=== PATIENT | female | born 1940 | race Caucasian/White ===

== ENCOUNTER → 2019-07-11 | Outpatient (CLI) | payer BC ==
--- NOTE | 2019-07-11 11:30 | KCIC ---
Abdominal ultrasound without comparison for chronic kidney disease stage IV, increased abdominal size, history of colon cancer, gastric bypass, assess for ascites. Technique an findings: Real-time grayscale and color Doppler evaluation of the abdominal organs is performed. Gallbladder surgically absent. The IVC is patent. Visualized portions of the aorta are not aneurysmal. There is partial obscuration of much of the midline due to overlying bowel gas, including the pancreas, and portions of the aorta. The spleen is also obscured. Portions of the liver are also obscured. The liver is enlarged measuring 16.8 cm. There is diffuse fatty infiltration of the liver, limiting evaluation of parenchymal architecture. No definite focal parenchymal abnormalities are seen. No intrahepatic ductal dilatation is present. The portal vein is patent and hepatopedal. Common bile duct is not identified. Evaluation of the kidneys is also somewhat limited by habitus. The right kidney measures 7.4 x 3.8 x 3.6 cm and the left measures 8.0 x 3.8 x 3.6 cm. There is increased echogenicity of both cortices, with no hydronephrosis or perinephric fluid. There is a simple exophytic cyst at the inferior pole the left kidney. No abdominal masses are identified and there is no ascites identified. IMPRESSION: 1. Limited examination due to central bowel gas and habitus. 2. Hepatomegaly and hepatic steatosis. 3. Atrophic echogenic kidneys consistent with chronic medical renal disease. 4. Simple left renal cyst. 5. No evidence of abdominal ascites. Electronically signed by: Gianni Martínez MD (07/11/2019 11:27 AM) [facility]
--- NOTE | 2019-07-11 12:59 | KCIC ---
Thyroid ultrasound without comparison for thyroid nodules. TECHNIQUE AND FINDINGS: Real-time grayscale and color Doppler evaluation of the thyroid gland is performed. The right lobe measures 4.2 x 1.8 x 1.4 cm and the left measures 4.0 x 2.1 x 1.4 cm. Isthmus is normal in thickness at 2.5 mm. The gland is homogeneous in echotexture, and demonstrates normal color flow. There are several nodules throughout the thyroid gland, all of which are less than a centimeter in diameter. On the right within the mid gland, there is a calcified shadowing nodule measuring 5 mm in diameter. The dominant nodule in the left thyroid lobe is inferior medially, and measures 0.8 x 0.9 cm. This is homogeneously hypoechoic, with smooth margins and no internal punctate calcifications. No significant vascularity. No adenopathy is identified. IMPRESSION: 1. Multinodular thyroid, with a dominant 9 mm nodule the inferior aspect the left thyroid lobe as described. Follow-up ultrasound in one year for this nodule should be considered. General recommendations for nodules 1.0 cm or greater in largest diameter: Strongly consider FNA for: -A nodule 1.0 cm or more in largest diameter if microcalcifications are present. -A nodule 1.5 cm or more in largest diameter if the nodule is almost entirely solid or if coarse calcifications are present. -A nodule 2.0 cm or more in largest diameter if the nodule is mixed solid and cystic, or is almost entirely cystic with a solid mural nodule, or has had substantial growth since prior US studies. JEFF Ultrasound Consensus Conference Statement, June 2005, Volume 237, Issue 3 Electronically signed by: Gianni Martínez MD (07/11/2019 12:56 PM) [facility]
== END | disposition home or self-care (01) ==
LOC: KCIC US 08:24
PROVIDERS: ATTEND Family Medicine
DX: E04.2 Nontoxic multinodular goiter (principal); K76.0 Fatty (change of) liver, not elsewhere classified; R16.0 Hepatomegaly, not elsewhere classified; N28.1 Cyst of kidney, acquired; N18.4 Chronic kidney disease, stage 4 (severe); Z85.038 Personal history of other malignant neoplasm of large intestine
CPT/HCPCS: 76536; 76700

== ENCOUNTER → 2020-03-03 | Outpatient (CLI) | payer BC ==
--- NOTE | 2020-03-03 16:45 | KCIC ---
3 view study of the second toe of the right foot Clinical indications: Dropped heavy object 6 weeks ago onto toe. Second toe pain. FINDINGS: No acute fracture or dislocation or lytic process is seen. IMPRESSION: No acute fracture. Electronically signed by: Carlos Enrique Figueroa MD (03/03/2020 4:42 PM) [id number]
== END | disposition home or self-care (01) ==
LOC: KCIC 14:57
PROVIDERS: ATTEND Family Medicine
DX: M79.674 Pain in right toe(s) (principal)
CPT/HCPCS: 73660

== ENCOUNTER 2020-03-17 20:55 | Inpatient (IN) | payer MEDICARE, BC ==
[~2020-03-17] VITALS: Ht 154.9 cm; Wt 71.7 kg
--- NOTE | 2020-03-17 22:32 | PHYS DOC ---
General Adult EDM: Chief Complaint: GI PROBLEM HPI: HPI: Patient is a 80 year old female who presents with complaints of diarrhea with nausea and vomiting. Patient reports that on Sunday she began to have large- volume diarrhea. She reports that she thought that things were getting better today that the volume of the diarrhea diminished but the frequency is still present. She denied abdominal pain or fever. Today she reports that she began to have nausea with vomiting stating that she did not have anything to bring up but that she was vomiting. Patient also states that she feels dizzy when she stands up like she is about to pass out but denies any syncope, chest pain or shortness of breath. Patient denies headache, ear pain change in urination back pain or joint pain that is changed. Review of Systems: Review of Systems: Constitutional: Denies fever or chills. [] Eyes: Denies change in visual acuity. [] HENT: Denies nasal congestion or sore throat. [] Respiratory: Denies cough or shortness of breath. [] Cardiovascular: Denies chest pain or edema. [] GI: See HPI. [] : Denies dysuria. [] Musculoskeletal: See HPI [] Integument: Denies rash. [] Neurologic: Denies headache, focal weakness or sensory changes. [] Endocrine: Denies polyuria or polydipsia. [] Lymphatic: Denies swollen glands. [] Psychiatric: Denies depression or anxiety. [] Heart Score: Risk Factors: Risk Factors: DM, Current or recent (<one month) smoker, HTN, HLP, family history of CAD, obesity. Risk Scores: Score 0 - 3: 2.5% MACE over next 6 weeks - Discharge Home Score 4 - 6: 20.3% MACE over next 6 weeks - Admit for Clinical Observation Score 7 - 10: 72.7% MACE over next 6 weeks - Early Invasive Strategies Allergies: Allergies: Allergies Coded Allergies Type Severity Reaction Last Updated Verified Penicillins Allergy Unknown 03/17/20 Yes Sulfa (Sulfonamide Antibiotics) Allergy Unknown 03/17/20 Yes piperacillin Allergy Unknown 03/17/20 Yes tazobactam Allergy Unknown 03/17/20 Yes Physical Exam: PE: Constitutional: Well developed, well nourished, no acute distress, non-toxic appearance. [] HENT: Normocephalic, atraumatic, bilateral external ears normal, oropharynx dry, no oral exudates, nose normal. [] Eyes: PERRLA, EOMI, conjunctiva normal, no discharge. [] Neck: Normal range of motion, no tenderness, supple, no stridor. [] Cardiovascular: Regular rhythm, tachycardic, grade 2/6 systolic murmur, 1 out of 2 pulses in the dorsalis pedis bilaterally [] Lungs & Thorax: Bilateral breath sounds clear to auscultation [] Abdomen: Hyperactive bowel sounds, soft, no tenderness, no masses, no pulsatile masses. No guarding, no rebound, no hepatosplenomegaly or masses [] Skin: Warm, dry, no erythema, no rash. [] Back: No tenderness, no CVA tenderness. [] Extremities: No tenderness, no cyanosis, no clubbing, ROM intact, no edema. [] Neurologic: Alert and oriented X 3, normal motor function, normal sensory function, no focal deficits noted. [] Psychologic: Affect flat, judgement normal, mood anxious. [] EKG: EKG: Heart rate 117 bpm, normal sinus rhythm with tachycardia, nonspecific T wave changes, normal axis, [place] interval 200 ms abnormal ECG [] Radiology/Procedures: Radiology/Procedures: [] Course & Med Decision Making: Course & Med Decision Making Pertinent Labs and Imaging studies reviewed. (See chart for details) 0139-patient was seen and reevaluated. Patient has improved with medications rendered here in the emergency department. Patient remains tachycardic and will require some additional IV fluids but will do a gentle hydration given her age and chronic renal insufficiency. IV Levaquin will be started for her presumed acute cystitis. We have not been able to collect any stool since she has not had any since her arrival here in the emergency department. [] Dragon Disclaimer: Dragon Disclaimer: This electronic medical record was generated, in whole or in part, using a voice recognition dictation system. Departure Departure Impression: Primary Impression: Generalized abdominal pain Additional Impressions: Acute on chronic renal insufficiency Dehydration Acute gastroenteritis Acute cystitis without hematuria Disposition: ADMITTED INPATIENT Condition: IMPROVED Referrals: SWETHA GUNN MD (PCP) Justicifation of Admission Dx: Justifications for Admission: Justification of Admission Dx: Yes Chronic Renal Failure: Electrolyte Abnormality NATHAN KRUEGER MD Mar 17, 2020 22:32
[2020-03-17] MEDS ORDERED: IV NORMAL SALINE 1000ML BAG 1,000 ML IV ONE (22:45)
[2020-03-17] MEDS ORDERED: METOCLOPRAMIDE HCL 10 MG/2 ML VIAL. IVP ONE (22:45)
[2020-03-17 22:52] LABS: BASO # 0.1 x10^3/uL (0.0-0.2); BASO % 0 % (0-3); EOS % 0 % (0-3); HEMATOCRIT 48.1 % (36.0-47.0); HEMOGLOBIN 15.2 g/dL (12.0-15.5); LYMPH # 1.1 x10^3/uL (1.0-4.8); LYMPH % 5 % (24-48); MEAN CORPUSCULAR HEMOGLOBIN 28 pg (25-35); MEAN CORPUSCULAR HGB CONC 32 g/dL (31-37); MEAN CORPUSCULAR VOLUME 88 fL (79-100); MONO # 0.8 x10^3/uL (0.0-1.1); MONO % 4 % (0-9); NEUT # 17.9 x10^3/uL (1.8-7.7); NEUT % 90 % (31-73); PLATELET COUNT 338 x10^3/uL (140-400); RED BLOOD COUNT 5.49 x10^6/uL (3.50-5.40); RED CELL DISTRIBUTION WIDTH 16.8 % (11.5-14.5); WHITE BLOOD COUNT 19.9 x10^3/uL (4.0-11.0)
[2020-03-17 23:00] LABS: PROTHROMBIN TIME PATIENT 14.2 SEC (11.7-14.0)
[2020-03-17 23:13] LABS: % BANDS 1 % (0-9); % BASOS 1 % (0-3); % LYMPHS 7 % (24-48); % MONOS 1 % (0-10); % SEGS 90 % (35-66); ANISOCYTOSIS SLIGHT; PLT ESTIMATE ADEQUATE (ADEQUATE)
[2020-03-17 23:30] LABS: CALCIUM 9.4 mg/dL (8.5-10.1); POTASSIUM 3.2 mmol/L (3.5-5.1)
--- NOTE | 2020-03-17 23:35 | RAD ---
CT scan of the abdomen and pelvis without contrast 03/17/2020 CLINICAL HISTORY: Diarrhea. TECHNIQUE: Unenhanced, contiguous, 5 mm axial sections were obtained through the abdomen and pelvis. One or more of the following individualized dose reduction techniques were utilized for this study: 1. Automated exposure control. 2. Adjustment of the mA and/or kV according to patient size. 3. Use of iterative reconstruction technique. FINDINGS: Images through the lung bases demonstrate minimal dependent subsegmental atelectasis bilaterally. A 1.4 cm bulla/bleb is seen within the right lower lobe. The liver, spleen, pancreas, adrenal glands and right kidney are within normal limits. Rounded low-attenuation lesions are seen involving the left kidney which measure 5 mm to 1 cm in size. They likely represent cysts. No further imaging workup is recommended. The abdominal aorta tapers normally. Mild atherosclerotic calcification abdominal aorta is seen. Surgical clips are seen within the gallbladder fossa consistent with a cholecystectomy. Postsurgical changes are seen involving the stomach. No free fluid or free air is seen within the abdomen. There is no evidence of bowel obstruction. The appendix is well-visualized and is within normal limits. Scattered diverticula are seen involving the colon. No inflammatory changes are seen adjacent fat. Images through the pelvis demonstrate the urinary bladder to be contracted. The patient appears to be post hysterectomy. No adnexal mass is seen. No free fluid is noted. Very mild S-shaped curvature of the thoracolumbar spine is seen. Degenerative changes are seen involving the lower thoracic and throughout the lumbar spine along with both hips. IMPRESSION: No acute abnormality is seen. Electronically signed by: Tomasz Leon MD (03/17/2020 11:32 PM) [id number]
[2020-03-17 23:36] LABS: ALBUMIN 3.6 g/dL (3.4-5.0); ALBUMIN/GLOBULIN RATIO 0.9 (1.0-1.7); TOTAL BILIRUBIN 0.5 mg/dL (0.2-1.0); TOTAL PROTEIN 7.7 g/dL (6.4-8.2)
[2020-03-18] MEDS ORDERED: POTASSIUM CHLORIDE 20 MEQ TABLET.ER. PO ONE (00:30)
[2020-03-18 00:39] LABS: BILIRUBIN,URINE MODERATE (NEG); CLARITY,URINE CLOUDY; COLOR,URINE AMBER; NITRITE,URINE NEGATIVE (NEG); PROTEIN,URINE 100 mg/dL (NEG-TRACE)
[2020-03-18 00:45] LABS: BACTERIA,URINE MANY /HPF (0-FEW); HYALINE CASTS, URINE MODERATE /HPF; RBC,URINE OCC /HPF (0-2); SQUAMOUS EPITHELIAL CELL,UR MOD /LPF; WBC,URINE TNTC /HPF (0-4)
[2020-03-18] MEDS ORDERED: MORPHINE SULFATE 2 MG/ML VIAL. IV PRN (01:45)
[2020-03-18 03:00] VITALS: BP 160/89
[2020-03-18] MEDS: ONDANSETRON PF 4 MG/2 ML VIAL. IVP PRN ×2 (04:05→20:52)
[2020-03-18] MEDS: IV NORMAL SALINE 1000ML BAG 1,000 ML IV SCH ×2 (04:06→15:53)
[2020-03-18] MEDS ORDERED: VENL75TA PO (04:25)
[2020-03-18] MEDS ORDERED: METO50TA6 PO (04:25)
[2020-03-18] MEDS ORDERED: CALC0.25 PO (04:25)
[2020-03-18] MEDS ORDERED: AMLO5TAB10 PO (04:25)
[2020-03-18] MEDS ORDERED: FURO20TA3 PO (04:25)
--- NOTE | 2020-03-18 05:00 | NUR ---
The patient, ELKIN REAL, 80 y/o, F admitted by RANJAN CHOW MD, was given written information regarding hospital policies, unit procedures and contact persons. Valuables were checked and accounted for on admission. Verified patients medication. Patient has had 2 loose stools since arriving to unit and started c-diff protocol.
--- NOTE | 2020-03-18 06:17 | EKG ---
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
[2020-03-18 07:00] VITALS: BP 137/65
--- NOTE | 2020-03-18 08:06 | PDOC1 ---
History and Physical Date of Admission Date of Admission DATE: 03/18/20 TIME: 08:04 Identification/Chief Complaint Chief Complaint Diarrhea Source Source: Patient History of Present Illness History of Present Illness Ms Teran is a 80 year old female w/ PMHx CKD, HTN, and collagenous colitis who presents with complaints of diarrhea with nausea and vomiting. Patient reports that on Sunday she began to have large-volume diarrhea. She reports that she thought that things were getting better today that the volume of the diarrhea diminished but the frequency is still present. She denied abdominal pain or fever. Today she reports that she began to have nausea with vomiting stating that she did not have anything to bring up but that she was vomiting. Patient also states that she feels dizzy when she stands up like she is about to pass out but denies any syncope, chest pain or shortness of breath. Patient denies headache, ear pain change in urination back pain or joint pain that is changed. Heart rate 117 bpm, normal sinus rhythm with tachycardia, nonspecific T wave changes, normal axis, PA interval 200 ms abnormal ECG WBC 19.9, Hb 15.2, platelets 338, INR 1.1, NA 141, K3.2, BUN 34, CR 3, glucose 130, UA with positive leukocyte esterase. Admitted for further care. Past Medical History Cardiovascular: HTN GI: Other (Collagenous colitis) Past Surgical History Past Surgical History: Cholecystectomy, Tonsillectomy, Other (Gastric Bypass) Family History Family History: Hypertension, Hypothyroidism Social History Smoke: No ALCOHOL: none Drugs: None Current Problem List Problem List Problems Medical Problems: (1) Acute cystitis without hematuria Status: Acute (2) Acute gastroenteritis Status: Acute (3) Acute on chronic renal insufficiency Status: Acute (4) Dehydration Status: Acute (5) Generalized abdominal pain Status: Acute Current Medications Current Medications Current Medications Metoclopramide HCl (Reglan Vial) 5 mg 1X ONCE IVP Last administered on 03/17/20at 23:09; Start 03/17/20 at 22:45; Stop 03/17/20 at 22:46; Status DC Sodium Chloride 1,000 ml @ 1,000 mls/hr 1X ONCE IV Last administered on 03/17/20at 23:08; Start 03/17/20 at 22:45; Stop 03/17/20 at 23:44; Status DC Potassium Chloride (Klor-Con) 40 meq 1X ONCE PO Last administered on 03/18/20at 02:11; Start 03/18/20 at 00:30; Stop 03/18/20 at 00:31; Status DC Levofloxacin/ Dextrose 100 ml @ 100 mls/hr 1X ONCE IV Last administered on 03/18/20at 02:11; Start 03/18/20 at 01:45; Stop 03/18/20 at 02:44; Status DC Morphine Sulfate (Morphine Sulfate) 2 mg PRN Q2HR PRN IV PAIN; Start 03/18/20 at 01:45; Stop 03/19/20 at 01:44 Sodium Chloride 1,000 ml @ 75 mls/hr [id number] IV Last administered on 03/18/20at 04:06; Start 03/18/20 at 01:45; Stop 03/19/20 at 01:44 Ondansetron HCl (Zofran) 4 mg PRN Q6HRS PRN IVP NAUSEA/VOMITING Last administered on 03/18/20at 04:05; Start 03/18/20 at 03:45 Active Scripts Active Reported Furosemide 20 Mg Tablet 1 Tab PO 3X/WEEK Venlafaxine Hcl 75 Mg Tablet 75 Mg PO DAILY Calcitriol 0.25 Mcg Capsule 1 Cap PO DAILY Metoprolol Tartrate 50 Mg Tablet 1 Tab PO DAILY Amlodipine Besylate 5 Mg Tablet 5 Mg PO DAILY Allergies Allergies: Coded Allergies: Penicillins (Verified Allergy, Unknown, 03/17/20) Sulfa (Sulfonamide Antibiotics) (Verified Allergy, Unknown, 03/17/20) piperacillin (Verified Allergy, Unknown, 03/17/20) tazobactam (Verified Allergy, Unknown, 03/17/20) ROS General: YES: Fatigue, Malaise; No: Chills, Night Sweats, Appetite, Other PSYCHOLOGICAL ROS: No: Anxiety, Behavioral Disorder, Concentration difficultie, Decreased libido, Depression, Disorientation, Hallucinations, Hostility, Irritablity, Memory difficulties, Mood Swings, Obsessive thoughts, Physical ab use, Sexual abuse, Sleep disturbances, Suicidal ideation, Other Eyes: No Blurry vision, No Decreased vision, No Double vision, No Dry eyes, No Excessive tearing, No Eye Pain, No Itchy Eyes, No Loss of vision, No Photophobia, No Scotomata, No Uses contacts, No Uses glasses, No Other HEENT: No: Heacaches, Visual Changes, Hearing change, Nasal congestion, Nasal discharge, Oral lesions, Sinus pain, Sore Throat, Epistaxis, Sneezing, Snoring, Tinnitus, Vertigo, Vocal changes, Other ALLERGY AND IMMUNOLOGY: No: Hives, Insect Bite Sensitivity, Itchy/Watery Eyes, Nasal Congestion, Post Nasal Drip, Seasonal Allergies, Other Hematological and Lymphatic: No: Bleeding Problems, Blood Clots, Blood Transfusions, Brusing, Night Sweats, Pallor, Swollen Lymph Nodes, Other ENDOCRINE: No: Breast Changes, Galactorrhea, Hair Pattern Changes, Hot Flashes, Malaise/lethargy, Mood Swings, Palpitations, Polydipsia/polyuria, Skin Changes, Temperature Intolerance, Unexpected Weight Changes, Other Breast: No New/Changing Breast Lumps, No Nipple changes, No Nipple discharge, No Other Respiratory: No: Cough, Hemoptysis, Orthopnea, Pleuritic Pain, Shortness of breath, SOB with excertion, Sputum Changes, Stridor, Tachypnea, Wheezing, Other Cardiovascular: No Chest Pain, No Palpitations, No Orthopnea, No Paroxysmal Noc. Dyspnea, No Edema, No Lt Headedness, No Other Gastrointestinal: Yes Nausea, Yes Vomiting, Yes Abdominal Pain, Yes Diarrhea; No Constipation, No Melena, No Hematochezia, No Other Genitourinary: YES Dysuria; No Frequency, No Incontinence, No Hematuria, No Retention, No Discharge, No Urgency, No Pain, No Flank Pain, No Other, No , No , No , No , No , No , No Musculoskeletal: No Gait Disturbance, No Joint Pain, No Joint Stiffness, No Joint Swelling, No Muscle Pain, No Muscular Weakness, No Pain In:, No Swelling In:, No Other Neurological: No Behavorial Changes, No Bowel/Bladder ControlChng, No Confusion, No Dizziness, No Gait Disturbance, No Headaches, No Impaired Coord/balance, No Memory Loss, No Numbness/Tingling, No Seizures, No Speech Problems, No Tremors, No Visual Changes, No Weakness, No Other Skin: No Dry Skin, No Eczema, No Hair Changes, No Lumps, No Mole Changes, No Mottling, No Nail Changes, No Pruritus, No Rash, No Skin Lesion Changes, No Other, No Acne Physical Exam General: Alert, Oriented X3, Cooperative, No acute distress HEENT: Atraumatic, PERRLA, EOMI, Mucous membr. moist/pink Lungs: Clear to auscultation, Normal air movement Heart: S1S2, RRR, no thrills, no rubs Abdomen: Normal bowel sounds, Soft, No hepatosplenomegaly, No masses, Other (LLQ tender) Extremities: No clubbing, No cyanosis, No edema, Normal pulses, No te nderness/swelling Skin: No rashes, No breakdown, No significant lesion Neuro: Normal gait, Normal speech, Strength at 5/5 X4 ext, Normal tone, Sensation intact, Cranial nerves 3-12 NL, Reflexes 2+ Psych/Mental Status: Mental status NL, Mood NL Vitals Vitals Vital Signs Date Time Temp Pulse Resp B/P (MAP) Pulse Ox O2 Delivery O2 Flow Rate FiO2 03/18/20 07:00 97.5 107 21 137/65 (89) 97 Room Air 97.5 Labs Labs Laboratory Tests Test 03/17/20 21:45 03/17/20 23:14 03/18/20 00:10 White Blood Count 19.9 x10^3/uL (4.0-11.0) Red Blood Count 5.49 x10^6/uL (3.50-5.40) Hemoglobin 15.2 g/dL (12.0-15.5) Hematocrit 48.1 % (36.0-47.0) Mean Corpuscular Volume 88 fL (79-100) Mean Corpuscular Hemoglobin 28 pg (25-35) Mean Corpuscular Hemoglobin Concent 32 g/dL (31-37) Red Cell Distribution Width 16.8 % (11.5-14.5) Platelet Count 338 x10^3/uL (140-400) Neutrophils (%) (Auto) 90 % (31-73) Lymphocytes (%) (Auto) 5 % (24-48) Monocytes (%) (Auto) 4 % (0-9) Eosinophils (%) (Auto) 0 % (0-3) Basophils (%) (Auto) 0 % (0-3) Neutrophils # (Auto) 17.9 x10^3/uL (1.8-7.7) Lymphocytes # (Auto) 1.1 x10^3/uL (1.0-4.8) Monocytes # (Auto) 0.8 x10^3/uL (0.0-1.1) Eosinophils # (Auto) 0.0 x10^3/uL (0.0-0.7) Basophils # (Auto) 0.1 x10^3/uL (0.0-0.2) Segmented Neutrophils % 90 % (35-66) Band Neutrophils % 1 % (0-9) Lymphocytes % 7 % (24-48) Monocytes % 1 % (0-10) Basophils % 1 % (0-3) Platelet Estimate Adequate (ADEQUATE) Anisocytosis Slight Prothrombin Time 14.2 SEC (11.7-14.0) Prothromb Time International Ratio 1.1 (0.8-1.1) Sodium Level 141 mmol/L (136-145) Potassium Level 3.2 mmol/L (3.5-5.1) Chloride Level 107 mmol/L (98-107) Carbon Dioxide Level 15 mmol/L (21-32) Anion Gap 19 (6-14) Blood Urea Nitrogen 34 mg/dL (7-20) Creatinine 3.0 mg/dL (0.6-1.0) Estimated GFR (Cockcroft-Gault) 15.0 BUN/Creatinine Ratio 11 (6-20) Glucose Level 130 mg/dL (70-99) Lactic Acid Level 2.0 mmol/L (0.4-2.0) Calcium Level 9.4 mg/dL (8.5-10.1) Total Bilirubin 0.5 mg/dL (0.2-1.0) Aspartate Amino Transf (AST/SGOT) 16 U/L (15-37) Alanine Aminotransferase (ALT/SGPT) 17 U/L (14-59) Alkaline Phosphatase 122 U/L (46-116) Total Protein 7.7 g/dL (6.4-8.2) Albumin 3.6 g/dL (3.4-5.0) Albumin/Globulin Ratio 0.9 (1.0-1.7) Urine Collection Type Unknown Urine Color Erin Urine Clarity Cloudy Urine pH 5.0 (<5.0-8.0) Urine Specific [place] 1.025 (1.000-1.030) Urine Protein 100 mg/dL (NEG-TRACE) Urine Glucose (UA) Negative mg/dL (NEG) Urine Ketones (Stick) 15 mg/dL (NEG) Urine Blood Negative (NEG) Urine Nitrite Negative (NEG) Urine Bilirubin Moderate (NEG) Urine Urobilinogen Dipstick 1.0 mg/dL (0.2 mg/dL) Urine Leukocyte Esterase Moderate (NEG) Urine RBC Occ /HPF (0-2) Urine WBC Tntc /HPF (0-4) Urine Squamous Epithelial Cells Mod /LPF Urine Bacteria Many /HPF (0-FEW) Urine Hyaline Casts Moderate /HPF Urine Mucus Mod /LPF Laboratory Tests Test 03/17/20 21:45 03/17/20 23:14 03/18/20 00:10 White Blood Count 19.9 x10^3/uL (4.0-11.0) Red Blood Count 5.49 x10^6/uL (3.50-5.40) Hemoglobin 15.2 g/dL (12.0-15.5) Hematocrit 48.1 % (36.0-47.0) Mean Corpuscular Volume 88 fL (79-100) Mean Corpuscular Hemoglobin 28 pg (25-35) Mean Corpuscular Hemoglobin Concent 32 g/dL (31-37) Red Cell Distribution Width 16.8 % (11.5-14.5) Platelet Count 338 x10^3/uL (140-400) Neutrophils (%) (Auto) 90 % (31-73) Lymphocytes (%) (Auto) 5 % (24-48) Monocytes (%) (Auto) 4 % (0-9) Eosinophils (%) (Auto) 0 % (0-3) Basophils (%) (Auto) 0 % (0-3) Neutrophils # (Auto) 17.9 x10^3/uL (1.8-7.7) Lymphocytes # (Auto) 1.1 x10^3/uL (1.0-4.8) Monocytes # (Auto) 0.8 x10^3/uL (0.0-1.1) Eosinophils # (Auto) 0.0 x10^3/uL (0.0-0.7) Basophils # (Auto) 0.1 x10^3/uL (0.0-0.2) Segmented Neutrophils % 90 % (35-66) Band Neutrophils % 1 % (0-9) Lymphocytes % 7 % (24-48) Monocytes % 1 % (0-10) Basophils % 1 % (0-3) Platelet Estimate Adequate (ADEQUATE) Anisocytosis Slight Prothrombin Time 14.2 SEC (11.7-14.0) Prothromb Time International Ratio 1.1 (0.8-1.1) Sodium Level 141 mmol/L (136-145) Potassium Level 3.2 mmol/L (3.5-5.1) Chloride Level 107 mmol/L (98-107) Carbon Dioxide Level 15 mmol/L (21-32) Anion Gap 19 (6-14) Blood Urea Nitrogen 34 mg/dL (7-20) Creatinine 3.0 mg/dL (0.6-1.0) Estimated GFR (Cockcroft-Gault) 15.0 BUN/Creatinine Ratio 11 (6-20) Glucose Level 130 mg/dL (70-99) Lactic Acid Level 2.0 mmol/L (0.4-2.0) Calcium Level 9.4 mg/dL (8.5-10.1) Total Bilirubin 0.5 mg/dL (0.2-1.0) Aspartate Amino Transf (AST/SGOT) 16 U/L (15-37) Alanine Aminotransferase (ALT/SGPT) 17 U/L (14-59) Alkaline Phosphatase 122 U/L (46-116) Total Protein 7.7 g/dL (6.4-8.2) Albumin 3.6 g/dL (3.4-5.0) Albumin/Globulin Ratio 0.9 (1.0-1.7) Urine Collection Type Unknown Urine Color Erin Urine Clarity Cloudy Urine pH 5.0 (<5.0-8.0) Urine Specific [place] 1.025 (1.000-1.030) Urine Protein 100 mg/dL (NEG-TRACE) Urine Glucose (UA) Negative mg/dL (NEG) Urine Ketones (Stick) 15 mg/dL (NEG) Urine Blood Negative (NEG) Urine Nitrite Negative (NEG) Urine Bilirubin Moderate (NEG) Urine Urobilinogen Dipstick 1.0 mg/dL (0.2 mg/dL) Urine Leukocyte Esterase Moderate (NEG) Urine RBC Occ /HPF (0-2) Urine WBC Tntc /HPF (0-4) Urine Squamous Epithelial Cells Mod /LPF Urine Bacteria Many /HPF (0-FEW) Urine Hyaline Casts Moderate /HPF Urine Mucus Mod /LPF Images Images CT abdomen/pelvis; The liver, spleen, pancreas, adrenal glands and right kidney are within normal limits. Rounded low-attenuation lesions are seen involving the left kidney which measure 5 mm to 1 cm in size. They likely represent cysts. No further imaging workup is recommended. The abdominal aorta tapers normally. Mild atherosclerotic calcification abdominal aorta is seen. Surgical clips are seen within the gallbladder fossa consistent with a cholecystectomy. Postsurgical changes are seen involving the stomach. No free fluid or free air is seen within the abdomen. There is no evidence of bowel obstruction. The appendix is well-visualized and is within normal limits. Scattered diverticula are seen involving the colon. No inflammatory changes are seen adjacent fat. Images through the pelvis demonstrate the urinary bladder to be contracted. The patient appears to be post hysterectomy. No adnexal mass is seen. No free fluid is noted. Very mild S-shaped curvature of the thoracolumbar spine is seen. Degenerative changes are seen involving the lower thoracic and throughout the lumbar spine along with both hips. IMPRESSION: No acute abnormality is seen. VTE Prophylaxis Ordered VTE Prophylaxis Devices: No VTE Pharmacological Prophylaxi: Yes Assessment/Plan Assessment/Plan A/P: Generalized abdominal pain - likely colitis related. History of collagenous c olitis. Given 1 dose of Levaquin. With this and IV fluids she is starting to feel improved. Will consult GI for further recommendations. Acute on chronic renal insufficiency -likely vasomotor nephropathy. Will hold her home Lasix dosing. Consult nephrology continue IV fluids. Dehydration - as above Acute gastroenteritis -continue IV antiemetics. Will advance diet per GI recs to clear liquids. Acute cystitis without hematuria -follow-up on urine culture. Given 1 dose of Levaquin in the ED. Given her renal disease will need to decrease dose or switch to ciprofloxacin. HTN - cont home meds FEN - NPO - ADAT PPX - heparin DNR/DNI Dispo - inpatient for above Justicifation of Admission Dx: Justifications for Admission: Justification of Admission Dx: Yes Chronic Renal Failure: Electrolyte Abnormality SCOT DRAPER MD Mar 18, 2020 08:06
--- NOTE | 2020-03-18 10:01 | NUR ---
CLIFTON following. Reviewed chart and discussed with RN. Pt on room air. Pt on IV Morphine. Pt COVID pending. Pt on a clear liquid diet. Pt is being tested for possible C-diff. CLIFTON attempted to call into pt's room and there was no answer. CLIFTON LVM for dtr Charmaine ([phone]) to coordinate care. CLIFTON asked RN about possible need for PT/OT consult. CLIFTON to follow for discharge planning. Addendum: 03/18/20 at 1019 by LEON LAZO dtr Charmaine called this CLIFTON back. 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 Pt's other dtr from [place] is staying with pt's spouse while pt is in the hospital. Discharge goal is home with possible HH if needed per dtr Charmaine. Addendum: 03/19/20 at 1427 by LEON LAZO SW following. Reviewed chart and discussed with RN. Pt to discharge home today with HH per Dr. Sparks. Spoke with dtr Charmaine who will provide transportation home at 1500. CLIFTON phoned and faxed HH referral to [facility], , (fax) at request of pt and pt's dtr. Completed Patient Choice of Vendor form. Pt's daughters are working on getting more care in the home for pt's spouse. No further SW needs at this time.
[2020-03-18 11:00] VITALS: BP 133/70
--- NOTE | 2020-03-18 11:57 | PDOC2 ---
CONSULT Date of Consult Date of Consult DATE: 03/18/20 TIME: 11:54 Reason for Consult Reason for Consult: YVETTE Identification/Chief Complaint Chief Complaint "I'm feeling better, had diarrhea for 3 days and was dehydrated " Source Source: Chart review, Patient History of Present Illness Reason for Visit: Pt is a 80 year old CF w/ PMHx CKD, HTN, and collagenous colitis who presents with complaints of diarrhea , nausea and vomiting. She reports that on Sunday she began to have large-volume diarrhea. Volume of the diarrhea diminished but the frequency is still present. She denied abdominal pain. No fever or chills . Today she began to have nausea and dry heaves . She was feeling dizzy when she stands up like she is about to pass out but denies any syncope. No chest pain or shortness of breath. She denies any Urinary complaints . No dysuria or hematuria. Denies using NSAID's and OTC supplements She has Hx of Kidney stones and last was in 2017 required 4 procedures , none since then. She has a Dx of CKD stage 4- states her kidney function has been around 24 % , she follows with Dr. pollard and her last appt was last month with stable renal function. No new med changes Currently she is feeling better Past Medical History Past Medical History Cardiovascular: HTN GI: Other (Collagenous colitis) CKD stage 4 Nephrolithiasis Past Surgical History Past Surgical History Cholecystectomy, Tonsillectomy, Other (Gastric Bypass) Intervention for Kidney stones in 2017 Family History Family History Hypertension, Hypothyroidism Social History Social History Smoke: No ALCOHOL: none Drugs: None Current Problem List Problem List Problems Medical Problems: (1) Acute cystitis without hematuria Status: Acute (2) Acute gastroenteritis Status: Acute (3) Acute on chronic renal insufficiency Status: Acute (4) Dehydration Status: Acute (5) Generalized abdominal pain Status: Acute Current Medications Current Medications Current Medications Metoclopramide HCl (Reglan Vial) 5 mg 1X ONCE IVP Last administered on 03/17/20at 23:09; Start 03/17/20 at 22:45; Stop 03/17/20 at 22:46; Status DC Sodium Chloride 1,000 ml @ 1,000 mls/hr 1X ONCE IV Last administered on 03/17/20at 23:08; Start 03/17/20 at 22:45; Stop 03/17/20 at 23:44; Status DC Potassium Chloride (Klor-Con) 40 meq 1X ONCE PO Last administered on 03/18/20at 02:11; Start 03/18/20 at 00:30; Stop 03/18/20 at 00:31; Status DC Levofloxacin/ Dextrose 100 ml @ 100 mls/hr 1X ONCE IV Last administered on 03/18/20at 02:11; Start 03/18/20 at 01:45; Stop 03/18/20 at 02:44; Status DC Morphine Sulfate (Morphine Sulfate) 2 mg PRN Q2HR PRN IV PAIN; Start 03/18/20 at 01:45; Stop 03/19/20 at 01:44 Sodium Chloride 1,000 ml @ 75 mls/hr [id number] IV Last administered on 03/18/20at 04:06; Start 03/18/20 at 01:45; Stop 03/19/20 at 01:44 Ondansetron HCl (Zofran) 4 mg PRN Q6HRS PRN IVP NAUSEA/VOMITING Last administered on 03/18/20at 04:05; Start 03/18/20 at 03:45 Active Scripts Active Reported Furosemide 20 Mg Tablet 1 Tab PO 3X/WEEK Venlafaxine Hcl 75 Mg Tablet 75 Mg PO DAILY Calcitriol 0.25 Mcg Capsule 1 Cap PO DAILY Metoprolol Tartrate 50 Mg Tablet 1 Tab PO DAILY Amlodipine Besylate 5 Mg Tablet 5 Mg PO DAILY Allergies Allergies: Coded Allergies: Penicillins (Verified Allergy, Unknown, 03/17/20) Sulfa (Sulfonamide Antibiotics) (Verified Allergy, Unknown, 03/17/20) piperacillin (Verified Allergy, Unknown, 03/17/20) tazobactam (Verified Allergy, Unknown, 03/17/20) ROS Review of System As per HPI, rest of the ROS is negative Physical Exam Physical Exam General: No acute distress HEENT Mucous membr. moist/pink Neck Supple Lungs Non labored CTA Heart: S1S2, RRR, no thrills, no rubs Abdomen: Normal bowel sounds, Soft, No hepatosplenomegaly, No masses, Extremities: No clubbing, No cyanosis, No edema Skin: No rashes, N Neuro: Grossly normal Psych/Mental Status: Mental status NL, Mood NL No Robert, No CVA or SP tenderness Vital Signs Vital Signs Date Time Temp Pulse Resp B/P (MAP) Pulse Ox O2 Delivery O2 Flow Rate FiO2 8/20/20 11:00 96.0 103 18 133/70 (91) 100 Room Air 96.0 Assessment & Plan YVETTE - pre-renal 2/2 Dehydration due to Diarrhea UA Unremarkable, Ct scan- Kidneys and bladder- No acute findings, No hydronephrosis IVF, supportive care,avoid nephrotoxins , Monitor CKD stage 4- Reviewed OP records Baseline Cr 1.9-2.[address] Pollard Nephrolithiasis- Hx of Renal stones, last in 2017 - s/p intervention , None since Generalized abdominal pain - l History of collagenous colitis- GI consulted Dehydration -IV F Acute gastroenteritis- per GI HTN - Hold Lasix Discussed with Pt and RN Labs Labs Laboratory Tests Test 03/17/20 21:45 03/17/20 23:14 03/18/20 00:10 White Blood Count 19.9 x10^3/uL (4.0-11.0) Red Blood Count 5.49 x10^6/uL (3.50-5.40) Hemoglobin 15.2 g/dL (12.0-15.5) Hematocrit 48.1 % (36.0-47.0) Mean Corpuscular Volume 88 fL (79-100) Mean Corpuscular Hemoglobin 28 pg (25-35) Mean Corpuscular Hemoglobin Concent 32 g/dL (31-37) Red Cell Distribution Width 16.8 % (11.5-14.5) Platelet Count 338 x10^3/uL (140-400) Neutrophils (%) (Auto) 90 % (31-73) Lymphocytes (%) (Auto) 5 % (24-48) Monocytes (%) (Auto) 4 % (0-9) Eosinophils (%) (Auto) 0 % (0-3) Basophils (%) (Auto) 0 % (0-3) Neutrophils # (Auto) 17.9 x10^3/uL (1.8-7.7) Lymphocytes # (Auto) 1.1 x10^3/uL (1.0-4.8) Monocytes # (Auto) 0.8 x10^3/uL (0.0-1.1) Eosinophils # (Auto) 0.0 x10^3/uL (0.0-0.7) Basophils # (Auto) 0.1 x10^3/uL (0.0-0.2) Segmented Neutrophils % 90 % (35-66) Band Neutrophils % 1 % (0-9) Lymphocytes % 7 % (24-48) Monocytes % 1 % (0-10) Basophils % 1 % (0-3) Platelet Estimate Adequate (ADEQUATE) Anisocytosis Slight Prothrombin Time 14.2 SEC (11.7-14.0) Prothromb Time International Ratio 1.1 (0.8-1.1) Sodium Level 141 mmol/L (136-145) Potassium Level 3.2 mmol/L (3.5-5.1) Chloride Level 107 mmol/L (98-107) Carbon Dioxide Level 15 mmol/L (21-32) Anion Gap 19 (6-14) Blood Urea Nitrogen 34 mg/dL (7-20) Creatinine 3.0 mg/dL (0.6-1.0) Estimated GFR (Cockcroft-Gault) 15.0 BUN/Creatinine Ratio 11 (6-20) Glucose Level 130 mg/dL (70-99) Lactic Acid Level 2.0 mmol/L (0.4-2.0) Calcium Level 9.4 mg/dL (8.5-10.1) Total Bilirubin 0.5 mg/dL (0.2-1.0) Aspartate Amino Transf (AST/SGOT) 16 U/L (15-37) Alanine Aminotransferase (ALT/SGPT) 17 U/L (14-59) Alkaline Phosphatase 122 U/L (46-116) Total Protein 7.7 g/dL (6.4-8.2) Albumin 3.6 g/dL (3.4-5.0) Albumin/Globulin Ratio 0.9 (1.0-1.7) Urine Collection Type Unknown Urine Color Erin Urine Clarity Cloudy Urine pH 5.0 (<5.0-8.0) Urine Specific [place] 1.025 (1.000-1.030) Urine Protein 100 mg/dL (NEG-TRACE) Urine Glucose (UA) Negative mg/dL (NEG) Urine Ketones (Stick) 15 mg/dL (NEG) Urine Blood Negative (NEG) Urine Nitrite Negative (NEG) Urine Bilirubin Moderate (NEG) Urine Urobilinogen Dipstick 1.0 mg/dL (0.2 mg/dL) Urine Leukocyte Esterase Moderate (NEG) Urine RBC Occ /HPF (0-2) Urine WBC Tntc /HPF (0-4) Urine Squamous Epithelial Cells Mod /LPF Urine Bacteria Many /HPF (0-FEW) Urine Hyaline Casts Moderate /HPF Urine Mucus Mod /LPF Laboratory Tests Test 03/17/20 21:45 03/17/20 23:14 03/18/20 00:10 White Blood Count 19.9 x10^3/uL (4.0-11.0) Red Blood Count 5.49 x10^6/uL (3.50-5.40) Hemoglobin 15.2 g/dL (12.0-15.5) Hematocrit 48.1 % (36.0-47.0) Mean Corpuscular Volume 88 fL (79-100) Mean Corpuscular Hemoglobin 28 pg (25-35) Mean Corpuscular Hemoglobin Concent 32 g/dL (31-37) Red Cell Distribution Width 16.8 % (11.5-14.5) Platelet Count 338 x10^3/uL (140-400) Neutrophils (%) (Auto) 90 % (31-73) Lymphocytes (%) (Auto) 5 % (24-48) Monocytes (%) (Auto) 4 % (0-9) Eosinophils (%) (Auto) 0 % (0-3) Basophils (%) (Auto) 0 % (0-3) Neutrophils # (Auto) 17.9 x10^3/uL (1.8-7.7) Lymphocytes # (Auto) 1.1 x10^3/uL (1.0-4.8) Monocytes # (Auto) 0.8 x10^3/uL (0.0-1.1) Eosinophils # (Auto) 0.0 x10^3/uL (0.0-0.7) Basophils # (Auto) 0.1 x10^3/uL (0.0-0.2) Segmented Neutrophils % 90 % (35-66) Band Neutrophils % 1 % (0-9) Lymphocytes % 7 % (24-48) Monocytes % 1 % (0-10) Basophils % 1 % (0-3) Platelet Estimate Adequate (ADEQUATE) Anisocytosis Slight Prothrombin Time 14.2 SEC (11.7-14.0) Prothromb Time International Ratio 1.1 (0.8-1.1) Sodium Level 141 mmol/L (136-145) Potassium Level 3.2 mmol/L (3.5-5.1) Chloride Level 107 mmol/L (98-107) Carbon Dioxide Level 15 mmol/L (21-32) Anion Gap 19 (6-14) Blood Urea Nitrogen 34 mg/dL (7-20) Creatinine 3.0 mg/dL (0.6-1.0) Estimated GFR (Cockcroft-Gault) 15.0 BUN/Creatinine Ratio 11 (6-20) Glucose Level 130 mg/dL (70-99) Lactic Acid Level 2.0 mmol/L (0.4-2.0) Calcium Level 9.4 mg/dL (8.5-10.1) Total Bilirubin 0.5 mg/dL (0.2-1.0) Aspartate Amino Transf (AST/SGOT) 16 U/L (15-37) Alanine Aminotransferase (ALT/SGPT) 17 U/L (14-59) Alkaline Phosphatase 122 U/L (46-116) Total Protein 7.7 g/dL (6.4-8.2) Albumin 3.6 g/dL (3.4-5.0) Albumin/Globulin Ratio 0.9 (1.0-1.7) Urine Collection Type Unknown Urine Color Erin Urine Clarity Cloudy Urine pH 5.0 (<5.0-8.0) Urine Specific [place] 1.025 (1.000-1.030) Urine Protein 100 mg/dL (NEG-TRACE) Urine Glucose (UA) Negative mg/dL (NEG) Urine Ketones (Stick) 15 mg/dL (NEG) Urine Blood Negative (NEG) Urine Nitrite Negative (NEG) Urine Bilirubin Moderate (NEG) Urine Urobilinogen Dipstick 1.0 mg/dL (0.2 mg/dL) Urine Leukocyte Esterase Moderate (NEG) Urine RBC Occ /HPF (0-2) Urine WBC Tntc /HPF (0-4) Urine Squamous Epithelial Cells Mod /LPF Urine Bacteria Many /HPF (0-FEW) Urine Hyaline Casts Moderate /HPF Urine Mucus Mod /LPF Review All relevant outside records, renal labs, imaging studies, telemetry/EKG's were reviewed. Images Images CT abdomen -- The liver, spleen, pancreas, adrenal glands and right kidney are within normal limits. Rounded low-attenuation lesions are seen involving the left kidney which measure 5 mm to 1 cm in size. They likely represent cysts. No further imaging workup is recommended. The abdominal aorta tapers normally. Mild atherosclerotic calcification abdominal aorta is seen. Surgical clips are seen within the gallbladder fossa consistent with a cholecystectomy. Postsurgical changes are seen involving the stomach. No free fluid or free air is seen within the abdomen. There is no evidence of bowel obstruction. The appendix is well-visualized and is within normal limits. Scattered diverticula are seen involving the colon. No inflammatory changes are seen adjacent fat. Images through the pelvis demonstrate the urinary bladder to be contracted. The patient appears to be post hysterectomy. No adnexal mass is seen. No free fluid is noted. Very mild S-shaped curvature of the thoracolumbar spine is seen. Degenerative changes are seen involving the lower thoracic and throughout the lumbar spine along with both hips. IMPRESSION: No acute abnormality is seen. RAMONA MAX MD Mar 18, 2020 11:57
[2020-03-18] MEDS ORDERED: CALC0.5C8 PO (13:17)
[2020-03-18] MEDS ORDERED: VENL75TA2 PO (13:17)
[2020-03-18] MEDS ORDERED: METO50TA4 PO (13:17)
[2020-03-18] MEDS ORDERED: PANT20TA2 PO (13:17)
--- NOTE | 2020-03-18 14:04 | PDOC2 ---
GI CONSULT Date of Service: DATE: 03/18/20 TIME: 13:49 Reason For Consult: loose stools HPI: HPI: 80 y/o female w/ watery diarrhea and dry heaves x 3 days. No precipitating events though did recently restart venlafaxine. Typically has one soft stool in the morning and occasional diarrhea - this is much more than usual. Colonoscopy w/ Dr. Aponte in 2008 for chronic diarrhea which showed sigmoid diverticulosis and uncomplicated internal hemorrhoids. Random colon biopsies were suggestive of IBD. She recalls being told she had collagenous colitis. Didn't tolerate trial of Lialda. Since then, had a colonoscopy in 2016 in [place] w/ a pre-cancerous polyp. Doesn't think she had random colon biopsies re: colitis at that time. Also had an EGD w/ Dr. Luis last February for dysphagia - says esophagus was dilated and has not had an issue swallowing since. Also gives h/o Banerjee's esophagus (takes pantoprazole), remote h/o PUD, and Kary-en-Y. Denies hematemesis, hematochezia, melena, weight loss, abd pain, and constipation. S/p cholecystectomy. Fatty liver on past imaging. No pancreas history. No NSAIDs. PMH: PMH: HTN, depression, multinodular thyroid cholecystectomy, hysterectomy, umbilical hernia repair, tonsillectomy and adenoidectomy, Kary-en-Y FH: Family History: No pertinent hx Social History: Smoke: No ALCOHOL: none Drugs: None ROS: GEN: Denies fevers, chills, sweats HEENT: Denies blurred vision, sore throat CV: Denies chest pain RESP: Denies shortness of air, cough GI: Per HPI : Denies hematuria, dysuria ENDO: Denies weight changes NEURO: Denies confusion, dizziness MSK: Denies weakness, joint pain/swelling SKIN: Denies jaundice, pruritus Vitals: Vitals: Vital Signs Date Time Temp Pulse Resp B/P (MAP) Pulse Ox O2 Delivery O2 Flow Rate FiO2 03/18/20 11:00 96.0 103 18 133/70 (91) 100 Room Air 96.0 Labs: Labs: Laboratory Tests Test 03/17/20 21:45 03/17/20 23:14 03/18/20 00:10 White Blood Count 19.9 x10^3/uL (4.0-11.0) Red Blood Count 5.49 x10^6/uL (3.50-5.40) Hemoglobin 15.2 g/dL (12.0-15.5) Hematocrit 48.1 % (36.0-47.0) Mean Corpuscular Volume 88 fL (79-100) Mean Corpuscular Hemoglobin 28 pg (25-35) Mean Corpuscular Hemoglobin Concent 32 g/dL (31-37) Red Cell Distribution Width 16.8 % (11.5-14.5) Platelet Count 338 x10^3/uL (140-400) Neutrophils (%) (Auto) 90 % (31-73) Lymphocytes (%) (Auto) 5 % (24-48) Monocytes (%) (Auto) 4 % (0-9) Eosinophils (%) (Auto) 0 % (0-3) Basophils (%) (Auto) 0 % (0-3) Neutrophils # (Auto) 17.9 x10^3/uL (1.8-7.7) Lymphocytes # (Auto) 1.1 x10^3/uL (1.0-4.8) Monocytes # (Auto) 0.8 x10^3/uL (0.0-1.1) Eosinophils # (Auto) 0.0 x10^3/uL (0.0-0.7) Basophils # (Auto) 0.1 x10^3/uL (0.0-0.2) Segmented Neutrophils % 90 % (35-66) Band Neutrophils % 1 % (0-9) Lymphocytes % 7 % (24-48) Monocytes % 1 % (0-10) Basophils % 1 % (0-3) Platelet Estimate Adequate (ADEQUATE) Anisocytosis Slight Prothrombin Time 14.2 SEC (11.7-14.0) Prothromb Time International Ratio 1.1 (0.8-1.1) Sodium Level 141 mmol/L (136-145) Potassium Level 3.2 mmol/L (3.5-5.1) Chloride Level 107 mmol/L (98-107) Carbon Dioxide Level 15 mmol/L (21-32) Anion Gap 19 (6-14) Blood Urea Nitrogen 34 mg/dL (7-20) Creatinine 3.0 mg/dL (0.6-1.0) Estimated GFR (Cockcroft-Gault) 15.0 BUN/Creatinine Ratio 11 (6-20) Glucose Level 130 mg/dL (70-99) Lactic Acid Level 2.0 mmol/L (0.4-2.0) Calcium Level 9.4 mg/dL (8.5-10.1) Total Bilirubin 0.5 mg/dL (0.2-1.0) Aspartate Amino Transf (AST/SGOT) 16 U/L (15-37) Alanine Aminotransferase (ALT/SGPT) 17 U/L (14-59) Alkaline Phosphatase 122 U/L (46-116) Total Protein 7.7 g/dL (6.4-8.2) Albumin 3.6 g/dL (3.4-5.0) Albumin/Globulin Ratio 0.9 (1.0-1.7) Urine Collection Type Unknown Urine Color Erin Urine Clarity Cloudy Urine pH 5.0 (<5.0-8.0) Urine Specific [place] 1.025 (1.000-1.030) Urine Protein 100 mg/dL (NEG-TRACE) Urine Glucose (UA) Negative mg/dL (NEG) Urine Ketones (Stick) 15 mg/dL (NEG) Urine Blood Negative (NEG) Urine Nitrite Negative (NEG) Urine Bilirubin Moderate (NEG) Urine Urobilinogen Dipstick 1.0 mg/dL (0.2 mg/dL) Urine Leukocyte Esterase Moderate (NEG) Urine RBC Occ /HPF (0-2) Urine WBC Tntc /HPF (0-4) Urine Squamous Epithelial Cells Mod /LPF Urine Bacteria Many /HPF (0-FEW) Urine Hyaline Casts Moderate /HPF Urine Mucus Mod /LPF Allergies: Coded Allergies: Penicillins (Verified Allergy, Unknown, 03/17/20) Sulfa (Sulfonamide Antibiotics) (Verified Allergy, Unknown, 03/17/20) piperacillin (Verified Allergy, Unknown, 03/17/20) tazobactam (Verified Allergy, Unknown, 03/17/20) Medications: Current Medications Medications (Trade) Dose Ordered Sig/Asia Route PRN Reason Start Time Stop Time Status Last Admin Dose Admin Metoclopramide HCl (Reglan Vial) 5 mg 1X ONCE IVP 03/17/20 22:45 03/17/20 22:46 DC 03/17/20 23:09 Sodium Chloride 1,000 ml @ 1,000 mls/hr 1X ONCE IV 03/17/20 22:45 03/17/20 23:44 DC 03/17/20 23:08 Potassium Chloride (Klor-Con) 40 meq 1X ONCE PO 03/18/20 00:30 03/18/20 00:31 DC 03/18/20 02:11 Levofloxacin/ Dextrose 100 ml @ 100 mls/hr 1X ONCE IV 03/18/20 01:45 03/18/20 02:44 DC 03/18/20 02:11 Sodium Chloride 1,000 ml @ 75 mls/hr [id number] IV 03/18/20 01:45 03/19/20 01:44 03/18/20 04:06 Ondansetron HCl (Zofran) 4 mg PRN Q6HRS PRN IVP NAUSEA/VOMITING 03/18/20 03:45 03/18/20 04:05 Imaging: Imaging: CT A/P IMPRESSION: No acute abnormality is seen. PE: GEN: NAD HEENT: Atraumatic, PERRL LUNGS: CTAB HEART: RRR ABD: NABS, S/ND/NT EXTREMITY: No edema SKIN: No rashes, no jaundice NEURO/PSYCH: A & O 3 A/P: A/P: Diarrhea, retching Leukocytosis, YVETTE/CKD, hypokalemia, UTI Banerjee's esophagus/GERD - on PPI (says last EGD in [place], [place] in 02/2019) CRC screen, h/o polyp - UTD (says done in [place] in 2017 - does not recall colitis issues then) H/o intermittent diarrhea - colon biopsies in 2008 suggestive of IBD Diverticulosis S/p cholecystectomy Hepatic steatosis R/o COVID-19 -- On IV Cipro and Flagyl. Blood and urine cultures and COVID testing pending. Check stool studies. Okay to ADAT. Resume PPI. Consider outpt colonoscopy pending clinical course w h/o abnormal biopsies/IBD in the past. Other per Dr. Aponte. NICOLA JOSEPH Mar 18, 2020 14:04
[2020-03-18] MEDS: HEPARIN for SUB-Q USE 5,000 UNIT/ML VIAL. SQ SCH ×2 (14:20→20:51)
[2020-03-18] MEDS: PANTOPRAZOLE 40 MG TABLET.DR. PO SCH (14:25)
[2020-03-18 15:00] VITALS: BP 139/61
[2020-03-18 19:00] VITALS: BP 140/72
[2020-03-18 22:35] VITALS: BP 140/68
[2020-03-19 02:58] VITALS: BP 126/64
[2020-03-19 05:39] LABS: CALCIUM 8.9 mg/dL (8.5-10.1); CREATININE 2.1 mg/dL (0.6-1.0); GFR 22.7; POTASSIUM 3.7 mmol/L (3.5-5.1)
[2020-03-19] MEDS: HEPARIN for SUB-Q USE 5,000 UNIT/ML VIAL. SQ SCH ×2 (06:39→14:00)
[2020-03-19 07:00] VITALS: BP 124/67
[2020-03-19] MEDS: PANTOPRAZOLE 40 MG TABLET.DR. PO SCH (07:30)
--- NOTE | 2020-03-19 08:37 | PDOC ---
[employer] PROGRESS NOTE Date of Service DOS: DATE: 03/19/20 TIME: 08:36 Chief Complaint Chief Complaint A/P: Generalized abdominal pain - likely colitis related. History of collagenous colitis. Given 1 dose of Levaquin. With this and IV fluids she is starting to feel improved. Will consult GI for further recommendations. Acute on chronic renal insufficiency -likely vasomotor nephropathy. Will hold her home Lasix dosing. Consult nephrology continue IV fluids. Dehydration - as above Acute gastroenteritis -continue IV antiemetics. Will advance diet per GI recs to clear liquids. Acute cystitis without hematuria -follow-up on urine culture. Given 1 dose of Levaquin in the ED. Given her renal disease will need to decrease dose or switch to ciprofloxacin. HTN - cont home meds FEN - NPO - ADAT PPX - heparin DNR/DNI Dispo - inpatient for above History of Present Illness History of Present Illness Ms Teran is a 80 year old female w/ PMHx CKD, HTN, and collagenous colitis who presents with complaints of diarrhea with nausea and vomiting. Patient reports that on Sunday she began to have large-volume diarrhea. She reports that she thought that things were getting better today that the volume of the diarrhea diminished but the frequency is still present. She denied abdominal pain or fever. Today she reports that she began to have nausea with vomiting stating that she did not have anything to bring up but that she was vomiting. Patient also states that she feels dizzy when she stands up like she is about to pass out but denies any syncope, chest pain or shortness of breath. Patient denies headache, ear pain change in urination back pain or joint pain that is changed. Heart rate 117 bpm, normal sinus rhythm with tachycardia, nonspecific T wave changes, normal axis, WA interval 200 ms abnormal ECG WBC 19.9, Hb 15.2, platelets 338, INR 1.1, NA 141, K3.2, BUN 34, CR 3, glucose 130, UA with positive leukocyte esterase. Creatinine improved to 2.1. Afebrile. Diarrhea improved significantly after 3 doses of IV metronidazole and IV ciprofloxacin. She would like to go home. Her urine culture looks 8 is greater than 3 organisms. Will discharge on 3 days of Cipro to 50 mg twice daily and metronidazole 500 mg twice daily for 3 days. 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 twice daily of sodium bicarbonate. She also outpatient follow-up with Dr. Chadd Aponte for her history of IBD (collagenous colitis) Vitals/I&O Vitals/I&O: Vital Signs Date Time Temp Pulse Resp B/P (MAP) Pulse Ox O2 Delivery O2 Flow Rate FiO2 03/19/20 07:00 96.5 76 16 124/67 (86) Room Air 99.0 96.5 03/19/20 02:58 98 I & O 03/18/20 03/18/20 03/19/20 15:00 23:00 07:00 Intake Total 480 ml 0 ml Output Total 545 ml 300 ml Balance 480 ml -545 ml -300 ml Physical Exam General: Alert, Oriented X3, Cooperative, No acute distress Abdomen: Normal bowel sounds, Soft, No hepatosplenomegaly, No masses, Other (LLQ tender) Extremities: No clubbing, No cyanosis, No edema, Normal pulses, No tenderness/swelling Skin: No rashes, No breakdown, No significant lesion Labs Labs: Laboratory Tests Test 03/18/20 14:20 03/19/20 04:00 Magnesium Level 1.9 mg/dL (1.8-2.4) Sodium Level 143 mmol/L (136-145) Potassium Level 3.7 mmol/L (3.5-5.1) Chloride Level 113 mmol/L (98-107) Carbon Dioxide Level 17 mmol/L (21-32) Anion Gap 13 (6-14) Blood Urea Nitrogen 25 mg/dL (7-20) Creatinine 2.1 mg/dL (0.6-1.0) Estimated GFR (Cockcroft-Gault) 22.7 Glucose Level 81 mg/dL (70-99) Calcium Level 8.9 mg/dL (8.5-10.1) Assessment and Plan Assessmemt and Plan Problems Medical Problems: (1) Acute cystitis without hematuria Status: Acute (2) Acute gastroenteritis Status: Acute (3) Acute on chronic renal insufficiency Status: Acute (4) Dehydration Status: Acute (5) Generalized abdominal pain Status: Acute Comment Review of Relevant I have reviewed the following items sonya (where applicable) has been applied. Medications: Current Medications Medications (Trade) Dose Ordered Sig/Asia Route PRN Reason Start Time Stop Time Status Last Admin Dose Admin Heparin Sodium (Porcine) (Heparin Sodium) 5,000 unit Q8HRS SQ 03/18/20 14:00 03/19/20 06:39 Metronidazole 100 ml @ 100 mls/hr Q12HR IV 03/18/20 14:00 03/18/20 20:49 Pantoprazole Sodium (Protonix) 40 mg DAILYAC PO 03/18/20 14:30 03/18/20 14:25 Justicifation of Admission Dx: Justifications for Admission: Justification of Admission Dx: Yes Chronic Renal Failure: Electrolyte Abnormality SCOT DRAPRE MD Mar 19, 2020 08:37
[2020-03-19] MEDS ORDERED: CIPROFLOXACIN 200MG PREMIX 100 ML IV SCH (09:00)
--- NOTE | 2020-03-19 09:26 | PDOC ---
DATE OF SERVICE DATE: 03/19/20 TIME: 09:26 SUBJECTIVE ROS states feeling better, No BM since last night Reports good UOP OBJECTIVE Vital Signs Vital Signs Date Time Temp Pulse Resp B/P (MAP) Pulse Ox O2 Delivery O2 Flow Rate FiO2 03/19/20 07:00 96.5 76 16 124/67 (86) Room Air 99.0 96.5 03/19/20 02:58 98 I & 0 Intake and Output 03/19/20 07:00 Intake Total 480 ml Output Total 845 ml Balance -365 ml Intake Oral 480 ml Output Urine Total 845 ml # Bowel Movements 1 PHYSICAL EXAM Physical Exam General: No acute distress HEENT Mucous membr. moist/pink Neck Supple Lungs Non labored CTA Heart: S1S2, RRR, no thrills, no rubs Abdomen: Normal bowel sounds, Soft, No hepatosplenomegaly, No masses, Extremities: No clubbing, No cyanosis, No edema Skin: No rashes, N Neuro: Grossly normal Psych/Mental Status: Mental status NL, Mood NL No Robert, No CVA or SP tenderness DIAGNOSIS/ASSESSMENT Assessment & Plan YVETTE - pre-renal 2/2 Dehydration due to Diarrhea UA Unremarkable, Ct scan- Kidneys and bladder- No acute findings, No hydronephrosis Improving renal function, close to baseline supportive care,avoid nephrotoxins , Monitor CKD stage 4- Reviewed OP records Baseline Cr 1.9-2.[address] 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 last EGD in 02/2019 h/o polyp H/o intermittent diarrhea - colon biopsies in 2008 suggestive of IBD Diverticulosis HTN - Holding Lasix COMMENT/RELEVANT DATA Meds Current Medications Medications (Trade) Dose Ordered Sig/[place] Start Time Stop Time Status Last Admin Dose Admin Ciprofloxacin/ Dextrose 100 ml @ 100 mls/hr Q24H 03/19/20 09:00 Heparin Sodium (Porcine) (Heparin Sodium) 5,000 unit Q8HRS 03/18/20 14:00 03/19/20 06:39 5,000 UNIT Levofloxacin/ Dextrose 100 ml @ 100 mls/hr 1X ONCE 03/18/20 01:45 03/18/20 02:44 DC 03/18/20 02:11 100 MLS/HR Metoclopramide HCl (Reglan Vial) 5 mg 1X ONCE 03/17/20 22:45 03/17/20 22:46 DC 03/17/20 23:09 5 MG Metronidazole 100 ml @ 100 mls/hr Q12HR 03/18/20 14:00 03/18/20 20:49 100 MLS/HR Morphine Sulfate (Morphine Sulfate) 2 mg PRN Q2HR PRN 03/18/20 01:45 03/19/20 01:44 DC Ondansetron HCl (Zofran) 4 mg PRN Q6HRS PRN 03/18/20 03:45 03/18/20 20:52 4 MG Pantoprazole Sodium (Protonix) 40 mg DAILYAC 03/18/20 14:30 03/18/20 14:25 40 MG Potassium Chloride (Klor-Con) 40 meq 1X ONCE 03/18/20 00:30 03/18/20 00:31 DC 03/18/20 02:11 40 MEQ Sodium Chloride 1,000 ml @ 75 mls/hr [id number] 03/18/20 01:45 03/19/20 01:44 DC 03/18/20 15:53 75 MLS/HR Lab Laboratory Tests Test 03/18/20 14:20 03/19/20 04:00 Magnesium Level 1.9 mg/dL (1.8-2.4) Sodium Level 143 mmol/L (136-145) Potassium Level 3.7 mmol/L (3.5-5.1) Chloride Level 113 mmol/L (98-107) Carbon Dioxide Level 17 mmol/L (21-32) Anion Gap 13 (6-14) Blood Urea Nitrogen 25 mg/dL (7-20) Creatinine 2.1 mg/dL (0.6-1.0) Estimated GFR (Cockcroft-Gault) 22.7 Glucose Level 81 mg/dL (70-99) Calcium Level 8.9 mg/dL (8.5-10.1) Results All relevant outside records, renal labs, imaging studies, telemetry/EKG's were reviewed. Justicifation of Admission Dx: Justifications for Admission: Justification of Admission Dx: Yes Chronic Renal Failure: Electrolyte Abnormality RAMONA MAX MD Mar 19, 2020 09:26
--- NOTE | 2020-03-19 10:22 | PDOC ---
Date of Service: DATE: 03/19/20 TIME: 10:17 Subjective: Subjective: Better today. No stool since yesterday. Would like to eat more. Objective: Objective: D/w nurse - stool mixed w/ urine yesterday so couldn't collect for lab. Vital Signs: Vital Signs Date Time Temp Pulse Resp B/P (MAP) Pulse Ox O2 Delivery O2 Flow Rate FiO2 03/19/20 07:00 96.5 76 16 124/67 (86) Room Air 99.0 96.5 03/19/20 02:58 98 Labs: Laboratory Tests Test 03/18/20 14:20 03/19/20 04:00 Magnesium Level 1.9 mg/dL Sodium Level 143 mmol/L Potassium Level 3.7 mmol/L Chloride Level 113 mmol/L Carbon Dioxide Level 17 mmol/L Anion Gap 13 Blood Urea Nitrogen 25 mg/dL Creatinine 2.1 mg/dL Estimated GFR (Cockcroft-Gault) 22.7 Glucose Level 81 mg/dL Calcium Level 8.9 mg/dL URINE CULTURE Final Final Three or more organisms isolated. Results consistent with colonization or contamination during the collection process. PE: GEN: NAD LUNGS: CTAB HEART: RRR ABD: S/ND/NT NEURO/PSYCH: A & O 3 A/P: Diarrhea, retching - better YVETTE/CKD - better Banerjee's esophagus/GERD, h/o possible IBD COVID negative -- ADAT as ordered yesterday. Stool studies uncollected so far. ?PO atbx She'd like to pursue outpt colonoscopy to re-eval for IBD. Justicifation of Admission Dx: Justifications for Admission: Justification of Admission Dx: Yes Chronic Renal Failure: Electrolyte Abnormality NICOLA JOSEPH Mar 19, 2020 10:22
[2020-03-19 11:00] VITALS: BP 147/76
[2020-03-19] MEDS ORDERED: SODIUM BICARBONATE VIAL 150 MEQ in IV DEXTROSE 5% 1,000 ML IV SCH (12:00)
[2020-03-19] MEDS ORDERED: SODI650T PO (13:48)
--- NOTE | 2020-03-19 13:50 | SNU/HH DC ---
DISCHARGE WITH HOME HEALTH DISCHARGE INFORMATION: Discharge Date: Mar 19, 2020 Final Diagnosis: Problems Medical Problems: (1) Acute cystitis without hematuria Status: Acute (2) Acute gastroenteritis Status: Acute (3) Acute on chronic renal insufficiency Status: Acute (4) Dehydration Status: Acute (5) Generalized abdominal pain Status: Acute Condition on Discharge: Stable CODE STATUS: Code Status: DNR/DNI HOME HEALTH: Face to Face: I certify this patient is under my care and that I, or a nurse practitioner or physician's health care legal assistant working with me, had a face to face encounter that meets the physician face to face encounter requirements with this patient on 03/19/2020. Medical Complications: Other (Colitis) Senior Living For: Assess & Educate Safety, Medication Management RN For Eval/Treatment: Yes Physical Therapy For: Evalulation/Treatment Occupational Therapy For: Evaluation/Treatment Pt Meets Homebound Status: Limited distance walking POST DISCHARGE ORDERS: Activity Instructions for Disc: Resume previous activity Weight Bearing Status after Di: Full weight bearing DIET AFTER DISCHARGE: Regular CHECKS AFTER DISCHARGE: Checks after discharge: Check blood press - daily FOLLOW-UP: Follow up with: Nephrology - Dr. Anderson Follow Up With: GI - Dr. Aponte CERTIFICATION STATEMENT: Certification Statement: Certification Statement: Based on the above finding, I certify that this patient is confined to the home and needs intermittent group home care, physical therapy and/or speech therapy, or continues to need occupational therapy.~ This patient is under my care, and I have initiated the establishment of the plan of care.~ This patient will be followed by myself or a community physician who will periodically review the plan of care. Home Meds Active Scripts Sodium Bicarbonate (SODIUM BICARBONATE) 650 Mg Tablet, 1 TAB PO BID for Acidosis for 30 Days, #60 TAB 3 Refills Prov:SCOT DRAPER MD 03/19/20 Reported Medications Venlafaxine Hcl (VENLAFAXINE HCL ER) 75 Mg Tab.er.24, 1 TAB PO DAILY for Depression for 30 Days, #30 TAB 0 Refills 03/18/20 Pantoprazole Sodium (PROTONIX) 20 Mg Tablet.dr, 1 TAB PO DAILY for GERD, #30 TAB 03/18/20 Calcitriol (CALCITRIOL) 0.5 Mcg Capsule, 1 CAP PO DAILY for supp, #90 CAP 1 Refill 03/18/20 Metoprolol Succinate (Toprol XL) 50 Mg Tab.er.24h, 50 MG PO DAILY for FOR H YPERTENSION, TAB.SR 03/18/20 Amlodipine Besylate (AMLODIPINE BESYLATE) 5 Mg Tablet, 5 MG PO DAILY for HTN, TAB 03/18/20 Discontinued Reported Medications Furosemide (FUROSEMIDE) 20 Mg Tablet, 1 TAB PO 3X/WEEK for Edema, #90 TAB 1 Refill 03/18/20 Venlafaxine Hcl (VENLAFAXINE HCL) 75 Mg Tablet, 75 MG PO DAILY for depression, TAB 03/18/20 Calcitriol (CALCITRIOL) 0.25 Mcg Capsule, 1 CAP PO DAILY for supplement, #30 CAP 5 Refills 03/18/20 Metoprolol Tartrate (METOPROLOL TARTRATE) 50 Mg Tablet, 1 TAB PO DAILY for HTN, #60 TAB 5 Refills 03/18/20 SCOT DRAPER MD Mar 19, 2020 13:50
[2020-03-19] MEDS ORDERED: METR-34 PO (13:52)
[2020-03-19] MEDS ORDERED: CIPR250T PO (13:52)
--- NOTE | 2020-03-19 13:56 | PDOC3 ---
Discharge Summary Visit Information Date of Admission: Mar 18, 2020 Date of Discharge: Mar 19, 2020 Admitting Diagnosis: Colitis Final Diagnosis Problems Medical Problems: (1) Acute cystitis without hematuria Status: Acute (2) Acute gastroenteritis Status: Acute (3) Acute on chronic renal insufficiency Status: Acute (4) Dehydration Status: Acute (5) Generalized abdominal pain Status: Acute Brief Hospital Course Allergies Allergies Coded Allergies Type Severity Reaction Last Updated Verified Penicillins Allergy Unknown 03/17/20 Yes Sulfa (Sulfonamide Antibiotics) Allergy Unknown 03/17/20 Yes piperacillin Allergy Unknown 03/17/20 Yes tazobactam Allergy Unknown 03/17/20 Yes Vital Signs Vital Signs Date Time Temp Pulse Resp B/P (MAP) Pulse Ox O2 Delivery O2 Flow Rate FiO2 03/19/20 11:00 97.2 74 18 147/76 (99) 98 Room Air 97.2 03/19/20 07:00 99.0 Lab Results Laboratory Tests Test 03/17/20 21:45 03/17/20 23:14 03/17/20 23:15 03/18/20 00:10 White Blood Count 19.9 x10^3/uL (4.0-11.0) Red Blood Count 5.49 x10^6/uL (3.50-5.40) Hemoglobin 15.2 g/dL (12.0-15.5) Hematocrit 48.1 % (36.0-47.0) Mean Corpuscular Volume 88 fL (79-100) Mean Corpuscular Hemoglobin 28 pg (25-35) Mean Corpuscular Hemoglobin Concent 32 g/dL (31-37) Red Cell Distribution Width 16.8 % (11.5-14.5) Platelet Count 338 x10^3/uL (140-400) Neutrophils (%) (Auto) 90 % (31-73) Lymphocytes (%) (Auto) 5 % (24-48) Monocytes (%) (Auto) 4 % (0-9) Eosinophils (%) (Auto) 0 % (0-3) Basophils (%) (Auto) 0 % (0-3) Neutrophils # (Auto) 17.9 x10^3/uL (1.8-7.7) Lymphocytes # (Auto) 1.1 x10^3/uL (1.0-4.8) Monocytes # (Auto) 0.8 x10^3/uL (0.0-1.1) Eosinophils # (Auto) 0.0 x10^3/uL (0.0-0.7) Basophils # (Auto) 0.1 x10^3/uL (0.0-0.2) Segmented Neutrophils % 90 % (35-66) Band Neutrophils % 1 % (0-9) Lymphocytes % 7 % (24-48) Monocytes % 1 % (0-10) Basophils % 1 % (0-3) Platelet Estimate Adequate (ADEQUATE) Anisocytosis Slight Prothrombin Time 14.2 SEC (11.7-14.0) Prothromb Time International Ratio 1.1 (0.8-1.1) Sodium Level 141 mmol/L (136-145) Potassium Level 3.2 mmol/L (3.5-5.1) Chloride Level 107 mmol/L (98-107) Carbon Dioxide Level 15 mmol/L (21-32) Anion Gap 19 (6-14) Blood Urea Nitrogen 34 mg/dL (7-20) Creatinine 3.0 mg/dL (0.6-1.0) Estimated GFR (Cockcroft-Gault) 15.0 BUN/Creatinine Ratio 11 (6-20) Glucose Level 130 mg/dL (70-99) Lactic Acid Level 2.0 mmol/L (0.4-2.0) Calcium Level 9.4 mg/dL (8.5-10.1) Total Bilirubin 0.5 mg/dL (0.2-1.0) Aspartate Amino Transf (AST/SGOT) 16 U/L (15-37) Alanine Aminotransferase (ALT/SGPT) 17 U/L (14-59) Alkaline Phosphatase 122 U/L (46-116) Total Protein 7.7 g/dL (6.4-8.2) Albumin 3.6 g/dL (3.4-5.0) Albumin/Globulin Ratio 0.9 (1.0-1.7) Coronavirus (PCR) Not detected (Not Detected) Urine Collection Type Unknown Urine Color Erin Urine Clarity Cloudy Urine pH 5.0 (<5.0-8.0) Urine Specific [place] 1.025 (1.000-1.030) Urine Protein 100 mg/dL (NEG-TRACE) Urine Glucose (UA) Negative mg/dL (NEG) Urine Ketones (Stick) 15 mg/dL (NEG) Urine Blood Negative (NEG) Urine Nitrite Negative (NEG) Urine Bilirubin Moderate (NEG) Urine Urobilinogen Dipstick 1.0 mg/dL (0.2 mg/dL) Urine Leukocyte Esterase Moderate (NEG) Urine RBC Occ /HPF (0-2) Urine WBC Tntc /HPF (0-4) Urine Squamous Epithelial Cells Mod /LPF Urine Bacteria Many /HPF (0-FEW) Urine Hyaline Casts Moderate /HPF Urine Mucus Mod /LPF Test 03/18/20 14:20 03/19/20 04:00 Magnesium Level 1.9 mg/dL (1.8-2.4) Sodium Level 143 mmol/L (136-145) Potassium Level 3.7 mmol/L (3.5-5.1) Chloride Level 113 mmol/L (98-107) Carbon Dioxide Level 17 mmol/L (21-32) Anion Gap 13 (6-14) Blood Urea Nitrogen 25 mg/dL (7-20) Creatinine 2.1 mg/dL (0.6-1.0) Estimated GFR (Cockcroft-Gault) 22.7 Glucose Level 81 mg/dL (70-99) Calcium Level 8.9 mg/dL (8.5-10.1) Laboratory Tests Test 03/18/20 14:20 03/19/20 04:00 Magnesium Level 1.9 mg/dL (1.8-2.4) Sodium Level 143 mmol/L (136-145) Potassium Level 3.7 mmol/L (3.5-5.1) Chloride Level 113 mmol/L (98-107) Carbon Dioxide Level 17 mmol/L (21-32) Anion Gap 13 (6-14) Blood Urea Nitrogen 25 mg/dL (7-20) Creatinine 2.1 mg/dL (0.6-1.0) Estimated GFR (Cockcroft-Gault) 22.7 Glucose Level 81 mg/dL (70-99) Calcium Level 8.9 mg/dL (8.5-10.1) Brief Hospital Course Ms Teran is a 80 year old female w/ PMHx CKD, HTN, and collagenous colitis who presents with complaints of diarrhea with nausea and vomiting. Patient reports that on Sunday she began to have large-volume diarrhea. She reports that she th ought that things were getting better today that the volume of the diarrhea diminished but the frequency is still present. She denied abdominal pain or fever. Today she reports that she began to have nausea with vomiting stating that she did not have anything to bring up but that she was vomiting. Patient also states that she feels dizzy when she stands up like she is about to pass out but denies any syncope, chest pain or shortness of breath. Patient denies headache, ear pain change in urination back pain or joint pain that is changed. Heart rate 117 bpm, normal sinus rhythm with tachycardia, nonspecific T wave changes, normal axis, NV interval 200 ms abnormal ECG WBC 19.9, Hb 15.2, platelets 338, INR 1.1, NA 141, K3.2, BUN 34, CR 3, glucose 130, UA with positive leukocyte esterase. Creatinine improved to 2.1. Afebrile. Diarrhea improved significantly after 3 doses of IV metronidazole and IV ciprofloxacin. She would like to go home. Her urine culture looks 8 is greater than 3 organisms. Will discharge on 3 days of Cipro to 50 mg twice daily and metronidazole 500 mg twice daily for 3 days. She will have outpatient follow-up with Dr. Ismael Anderson her primary bone process operator and will be on 650 mg p.o. twice daily of sodium bicarbonate. She also outpatient follow-up with Dr. Chadd Aponte for her history of IBD (collagenous colitis) Consults: Nephrology, GI Problem list: Generalized abdominal pain - likely colitis related. History of collagenous colitis. Given 1 dose of Levaquin. With this and IV fluids she is starting to feel improved. Will consult GI for further recommendations. Acute on chronic renal insufficiency -likely vasomotor nephropathy. Will hold her home Lasix dosing. Consult nephrology continue IV fluids. Dehydration - as above Acute gastroenteritis -continue IV antiemetics. Will advance diet per GI recs to clear liquids. Acute cystitis without hematuria -follow-up on urine culture. Given 1 dose of Levaquin in the ED. Given her renal disease will need to decrease dose or switch to ciprofloxacin. HTN - cont home meds Greater than 30 minutes spent on d/c Discharge Information Condition at Discharge: Improved Follow Up: Weeks (1) Disposition/Orders: D/C to Home w/ HH Scheduled Amlodipine Besylate (Amlodipine Besylate) 5 Mg Tablet, 5 MG PO DAILY for HTN, (Reported) Entered as Reported by: ERIN HARMON on 03/18/20424 Last Taken: Unknown Dose on 03/16/20 Last Action: New Order on 03/18/20424 by ERIN HARMON Calcitriol (Calcitriol) 0.5 Mcg Capsule, 1 CAP PO DAILY for supp, #90 Ref 1 (Reported) Entered as Reported by: CLAUDIA DOWNING on 03/18/201316 Last Taken: Unknown Dose on Unknown Date & Time Last Action: New Order on 03/18/201316 by CLAUDIA DOWNING Ciprofloxacin Hcl (Ciprofloxacin Hcl) 250 Mg Tablet, 1 TAB PO BID for UTI/Colitis for 3 Days, #6 Prescribed by: SCOT DRAPER MD on 03/19/20 1352 Metoprolol Succinate (Toprol XL) 50 Mg Tab.er.24h, 50 MG PO DAILY for FOR HYPERTENSION, (Reported) Entered as Reported by: CLAUDIA DOWNING on 03/18/201316 Last Taken: Unknown Dose on Unknown Date & Time Last Action: New Order on 03/18/201316 by CLAUDIA DOWNING Metronidazole (Metronidazole) 500 Mg Tablet, 1 TAB PO BID for Colitis for 3 Days, #6 Ref 0 Prescribed by: SCOT DRAPER MD on 03/19/20 1352 Pantoprazole Sodium (Protonix) 20 Mg Tablet.dr, 1 TAB PO DAILY for GERD, #30 (Reported) Entered as Reported by: CLAUDIA DOWNING on 03/18/201316 Last Taken: Unknown Dose on Unknown Date & Time Last Action: New Order on 03/18/201316 by CLAUDIA DOWNING Sodium Bicarbonate (Sodium Bicarbonate) 650 Mg Tablet, 1 TAB PO BID for Acidosis for 30 Days, #60 Ref 3 Prescribed by: SCOT DRAPER MD on 03/19/20 1348 Venlafaxine Hcl (Venlafaxine Hcl Er) 75 Mg Tab.er.24, 1 TAB PO DAILY for Depression for 30 Days, #30 Ref 0 (Reported) Entered as Reported by: CLAUDIA DOWNING on 03/18/201316 Last Taken: Unknown Dose on Unknown Date & Time Last Action: New Order on 03/18/201316 by CLAUDIA DOWNING Discontinued Medications Calcitriol (Calcitriol) 0.25 Mcg Capsule, 1 CAP PO DAILY for supplement, #30 Ref 5 (Reported) Entered as Reported by: ERNI HARMON on 03/18/20424 Last Taken: Unknown Dose on 03/16/20 Last Action: Discontinued on 03/18/201316 by CLAUDIA DOWNING Furosemide (Furosemide) 20 Mg Tablet, 1 TAB PO 3X/WEEK for Edema, #90 Ref 1 (Reported) Entered as Reported by: ERIN HARMON on 03/18/20424 Last Taken: Unknown Dose on 03/15/20 Last Action: New Order on 03/18/20424 by ERIN HARMON Metoprolol Tartrate (Metoprolol Tartrate) 50 Mg Tablet, 1 TAB PO DAILY for HTN, #60 Ref 5 (Reported) Entered as Reported by: ERIN HARMON on 03/18/20424 Last Taken: Unknown Dose on 03/16/20 Last Action: Discontinued on 03/18/201316 by CLAUDIA DOWNING Venlafaxine Hcl (Venlafaxine Hcl) 75 Mg Tablet, 75 MG PO DAILY for depression, (Reported) Entered as Reported by: ERIN HARMON on 03/18/20424 Last Taken: Unknown Dose on 03/16/20 Last Action: Discontinued on 03/18/201316 by CLAUDIA DOWNING Justicifation of Admission Dx: Justifications for Admission: Justification of Admission Dx: Yes Chronic Renal Failure: Electrolyte Abnormality SCOT DRAPER MD Mar 19, 2020 13:56
[2020-03-19 14:39] VITALS: BP 151/80
--- NOTE | 2020-03-19 15:05 | NUR ---
Pt discharged home with daughter. Discharge teaching completed and medications sent to [facility] by Dr Sparks. Pt reports she has already gotten a text.
--- NOTE | 2020-03-19 15:12 | NUR ---
SW following. Reviewed chart and discussed with RN. Pt to discharge home today with HH per Dr. Sparks. Spoke with dtr Charmaine who will provide transportation home at 1500. [facility] phoned and faxed HH referral to [facility], , (fax) at request of pt and pt's dtr. Completed Patient Choice of Vendor form. Pt's daughters are working on getting more care in the home for pt's spouse. No further SW needs at this time. -[facility] called and confirmed they would accept pt and will call dtr Charmaine to arrange start of service. RN notified.
[2020-03-19] MEDS ORDERED: LACTOBACILLUS RHAMNOSUS GG 1 CAPSULE. PO SCH (21:00)
== END 2020-03-19 15:05 | disposition home health service (06) | DRG 391 ==
LOC: ER 20:55 → 6 SOUTH 03-18 02:10
PROVIDERS: ADMIT Family Medicine; ATTEND Family Medicine
DX: K52.9 Noninfective gastroenteritis and colitis, unspecified (principal); N17.0 Acute kidney failure with tubular necrosis; N30.00 Acute cystitis without hematuria; N18.4 Chronic kidney disease, stage 4 (severe); K52.831 Collagenous colitis; E04.2 Nontoxic multinodular goiter; E86.0 Dehydration; F32.9 Major depressive disorder, single episode, unspecified; I12.9 Hypertensive chronic kidney disease with stage 1 through stage 4 chronic kidney disease, or unspecified chronic kidney disease; K21.9 Gastro-esophageal reflux disease without esophagitis; K22.70 Barrett's esophagus without dysplasia; E87.6 Hypokalemia; K57.30 Diverticulosis of large intestine without perforation or abscess without bleeding; K76.0 Fatty (change of) liver, not elsewhere classified; Z20.828 Contact with and (suspected) exposure to other viral communicable diseases; Z66 Do not resuscitate; Z82.49 Family history of ischemic heart disease and other diseases of the circulatory system; Z87.11 Personal history of peptic ulcer disease; Z87.442 Personal history of urinary calculi; Z90.49 Acquired absence of other specified parts of digestive tract; Z90.710 Acquired absence of both cervix and uterus; Z98.84 Bariatric surgery status
CPT/HCPCS: 36415; 74176; 80048; 80053; 81001; 83605; 83735; 85007; 85025; 85610; 87040; 87086; 93005; 96361; 96365; 96367; J1644; J1956; J2405; J2765; J3490; J7030; 99285-25; G0378; U0003-CS

== ENCOUNTER → 2020-06-04 | Outpatient (CLI) | payer BC ==
[~2020-06-04] MED LIST: AMLO-186 PO; CALC0.25 PO; CALC0.5C8 PO; CIPR250T PO; FURO20TA3 PO; METO50TA4 PO; METO50TA6 PO; METR-34 PO; NITR100C62 PO; PANT20TA2 PO; SODI650T PO; VENL75TA PO; VENL75TA2 PO
--- NOTE | 2020-06-28 15:51 | KCIC ---
Bilateral digital screening mammograms: Reason for examination: Routine screening. No previous examinations are available for comparison. Interpretation is made with the benefit of CAD. The skin and nipples show no abnormalities. No abnormal lymph nodes are seen. The breast parenchyma is predominantly fatty. (Breast density: Category A.) There are small circumscribed nodules consistent with intramammary lymph nodes at the 2:00 C position of the left breast. This can be verified with ultrasound. There are no vdominant masses, suspicious calcifications or architectural distortions. A few benign calcifications are present. Impression: Small nodules at the 2:00 C position of the left breast which probably represent intramammary lymph nodes. Recommend further evaluation with ultrasound. BI-RADS Category 0: Incomplete. Needs additional imaging evaluation "Our facility is accredited by the [employer] Mammography Program." This patient's information has been entered into a reminder system for the patient to be notified with the results of her examination and a target date for the next mammogram. Electronically signed by: Estefani Ferguson MD (06/28/2020 3:48 PM) [id number]
== END ==
LOC: KCIC MAMMO 09:20
PROVIDERS: ATTEND Family Medicine
DX: Z12.31 Encounter for screening mammogram for malignant neoplasm of breast (principal); N63.21 Unspecified lump in the left breast, upper outer quadrant
CPT/HCPCS: 77067

== ENCOUNTER 2020-06-18 17:05 | Emergency (ER) | payer BC, MEDICARE ==
[~2020-06-18] VITALS: Ht 154.9 cm; Wt 72.0 kg
[~2020-06-18 17:05] MED LIST changes: -NITR100C62 PO
[2020-06-18 19:58] LABS: BASO % 1 % (0-3); EOS # 0.1 x10^3/uL (0.0-0.7); EOS % 1 % (0-3); HEMATOCRIT 38.8 % (36.0-47.0); HEMOGLOBIN 12.7 g/dL (12.0-15.5); LYMPH # 0.9 x10^3/uL (1.0-4.8); LYMPH % 15 % (24-48); MEAN CORPUSCULAR HEMOGLOBIN 28 pg (25-35); MEAN CORPUSCULAR HGB CONC 33 g/dL (31-37); MEAN CORPUSCULAR VOLUME 86 fL (79-100); MONO # 0.5 x10^3/uL (0.0-1.1); MONO % 8 % (0-9); NEUT # 4.7 x10^3/uL (1.8-7.7); NEUT % 76 % (31-73); PLATELET COUNT 195 x10^3/uL (140-400); RED BLOOD COUNT 4.52 x10^6/uL (3.50-5.40); RED CELL DISTRIBUTION WIDTH 15.7 % (11.5-14.5); WHITE BLOOD COUNT 6.3 x10^3/uL (4.0-11.0)
[2020-06-18 20:05] LABS: CALCIUM 8.1 mg/dL (8.5-10.1); CREATININE 1.9 mg/dL (0.6-1.0); GFR 25.4
--- NOTE | 2020-06-18 20:05 | PHYS DOC ---
Past Medical History Past Medical History: Hypertension, Hyperthyroid, Other Additional Past Medical Histor: stage 4 kidney disease, barretts esophagus Past Surgical History: Other Smoking Status: Former Smoker Alcohol Use: None General Adult EDM: Chief Complaint: URINARY RETENTION HPI: HPI: Patient is a 80 year old female who presents with found out she was Covid positive on Sunday. She has shortness of breath, cough, fever, nausea, loss of taste and smell, fatigue and weakness. She states she has been drinking fluids but has not been eating much. She states that " not feeling well at all". Patient denies any pain at this time. Patient has a history of hypertension, hyper thyroidism, gastritis, renal disease stage IV, Banerjee's esophagus. She states she is not been taking her medications because she is just not feeling well. Patient denies chest pain, abdominal pain, diarrhea, constipation, urinary symptoms, back pain, vomiting, focal weakness, vision changes, numbness or tingling, dizziness, syncope, headache. She last took Tylenol earlier this afternoon. Patient is currently afebrile in the ED. Review of Systems: Review of Systems: Constitutional: + fever or chills. [] Eyes: Denies change in visual acuity. [] HENT: Denies nasal congestion or sore throat. + Lack of taste and smell [] Respiratory: + cough or +shortness of breath. [] Cardiovascular: Denies chest pain or edema. [] GI: Denies abdominal pain. + nausea, denies vomiting, bloody stools or diarrhea. [] : Denies dysuria. [] Musculoskeletal: Denies back pain or joint pain. [] Integument: Denies rash. [] Neurologic: Denies headache, focal weakness or sensory changes. [] Endocrine: Denies polyuria or polydipsia. [] Lymphatic: Denies swollen glands. [] Psychiatric: Denies depression or anxiety. [] Heart Score: Risk Factors: Risk Factors: DM, Current or recent (<one month) smoker, HTN, HLP, family history of CAD, obesity. Risk Scores: Score 0 - 3: 2.5% MACE over next 6 weeks - Discharge Home Score 4 - 6: 20.3% MACE over next 6 weeks - Admit for Clinical Observation Score 7 - 10: 72.7% MACE over next 6 weeks - Early Invasive Strategies Allergies: Allergies: Allergies Coded Allergies Type Severity Reaction Last Updated Verified Penicillins Allergy Unknown 03/17/20 Yes Sulfa (Sulfonamide Antibiotics) Allergy Unknown 03/17/20 Yes piperacillin Allergy Unknown 03/17/20 Yes tazobactam Allergy Unknown 03/17/20 Yes Physical Exam: PE: Constitutional: Well developed, well nourished, no acute distress, non-toxic appearance. [] HENT: Normocephalic, atraumatic, bilateral external ears normal, oropharynx moist, no oral exudates, nose normal. [] Eyes: PERRLA, EOMI, conjunctiva normal, no discharge. [] Neck: Normal range of motion, no tenderness, supple, no stridor. [] Cardiovascular:Heart rate regular rhythm, no murmur [] Lungs & Thorax: Bilateral breath sounds clear to auscultation [] Abdomen: Bowel sounds normal, soft, no tenderness, no masses, no pulsatile masses. [] Skin: Warm, dry, no erythema, no rash. [] Back: No tenderness, no CVA tenderness. [] Extremities: No tenderness, no cyanosis, no clubbing, ROM intact, no edema. [] Neurologic: Alert and oriented X 3, normal motor function, normal sensory function, no focal deficits noted. [] Psychologic: Affect normal, judgement normal, mood normal. Normal physical exam [] Current Patient Data: Labs: Laboratory Tests Test 06/18/20 19:45 White Blood Count 6.3 x10^3/uL (4.0-11.0) Red Blood Count 4.52 x10^6/uL (3.50-5.40) Hemoglobin 12.7 g/dL (12.0-15.5) Hematocrit 38.8 % (36.0-47.0) Mean Corpuscular Volume 86 fL (79-100) Mean Corpuscular Hemoglobin 28 pg (25-35) Mean Corpuscular Hemoglobin Concent 33 g/dL (31-37) Red Cell Distribution Width 15.7 % (11.5-14.5) H Platelet Count 195 x10^3/uL (140-400) Neutrophils (%) (Auto) 76 % (31-73) H Lymphocytes (%) (Auto) 15 % (24-48) L Monocytes (%) (Auto) 8 % (0-9) Eosinophils (%) (Auto) 1 % (0-3) Basophils (%) (Auto) 1 % (0-3) Neutrophils # (Auto) 4.7 x10^3/uL (1.8-7.7) Lymphocytes # (Auto) 0.9 x10^3/uL (1.0-4.8) L Monocytes # (Auto) 0.5 x10^3/uL (0.0-1.1) Eosinophils # (Auto) 0.1 x10^3/uL (0.0-0.7) Basophils # (Auto) 0.0 x10^3/uL (0.0-0.2) Laboratory Tests 06/18/20 19:45 Vital Signs: Vital Signs Date Time Temp Pulse Resp B/P (MAP) Pulse Ox O2 Delivery O2 Flow Rate FiO2 06/18/20 18:30 98.8 91 18 171/71 (104) 100 Room Air 98.8 EKG: EK read by Dr. Rosa as sinus rhythm and no STEMI. [] Radiology/Procedures: Radiology/Procedures: [] Impression: [facility] [address] [place] [address] IMAGING REPORT Signed PATIENT: ELKIN REAL ACCOUNT: [id number] : 1940 LOCATION: ER AGE: 80 SEX: F EXAM STATUS: REG ER ORD. PHYSICIAN: CASPER HERCULES APRN REASON: COVID +, INCREASE SOA PROCEDURE: PORTABLE CHEST 1V Examination: PORTABLE CHEST 1V History: Reason: COVID +, INCREASE SOA / Spl. Instructions: / History: Comparison/Correlation: None Findings: Portable upright frontal view of the chest was obtained. Limited pulmonary inflation is present. Interstitial thickening of lung huff diffusely noted and nonspecific. Left lateral basal discoid atelectasis is present. Coronal surgical clips are present. Degenerative narrowing of left glenohumeral joint noted. Impression: Mild discoid atelectasis. No dense consolidations. Electronically signed by: Robi Schuster MD (06/18/2020 8:51 PM) [facility] DICTATED and SIGNED BY: ROBI SCHUSTER MD DATE: 06/18/20 [id number] 0 Course & Med Decision Making: Course & Med Decision Making Pertinent Labs and Imaging studies reviewed. (See chart for details) See HPI. Alert and oriented x4. Speaks in full complete sentences. Patient is moving around in the bed and able to situate herself without help. No extremity edema. Lungs are clear to auscultation all lobes. Vital signs are within normal limits. Skin pink warm and dry. Answers all my questions appropriately. Abdomen is soft and nontender. Blood work is generally unremarkable. Creatinine is 1.9 and when looking back it usually runs around 2.0 or higher. Patient was given 500 mL of normal saline in the ED. She has a slight urinary tract infection. Chest x-ray shows some atelectasis. I have offered the patient admission and she states " as long as my kidneys are not feeling, I want to go home." Patient states that she can take care of herself at home and she feels well enough to go home. She has been running 94%-95% on room air. ABG shows 93%. Patient is not requiring oxygenation. She is stable and speaks in full complete sentences. Patient was able to walk around in the room and go to the bedside commode without problem. Patient will be placed on Macrobid to go home. Patient is given strict education that if she begins having severe shortness of breath or severe chest pain that she needs to return to the emergency room. Patient agrees to this. I have spoken to Dr Rosa concerning this patients findings and care plan. [] Bobby Disclaimer: Bobby Disclaimer: This electronic medical record was generated, in whole or in part, using a voice recognition dictation system. Departure Departure Impression: Primary Impression: UTI (urinary tract infection) Qualified Codes: N39.0 - Urinary tract infection, site not specified Additional Impressions: Lab test positive for detection of COVID-19 virus Shortness of breath Disposition: 01 DC HOME SELF CARE/HOMELESS Condition: STABLE Referrals: SWETHA GUNN MD (PCP) Patient Instructions: Urinary Tract Infection Additional Instructions: Return if you have severe shortness of breath or chest pain or you cannot keep any fluids down. Take medication as prescribed and with food. Take all of your medications as they are as prescribed. Follow-up with your primary care physician. Scripts Nitrofurantoin Monohyd/M-Cryst (MACROBID 100 MG CAPSULE) 100 Mg Capsule 1 CAP PO BID for 7 Days, #14 CAP 0 Refills Prov: CASPER HERCULES APRN 06/18/20 CASPER HERCULES APRN Jun 18, 2020 20:05
[2020-06-18 20:11] LABS: ALBUMIN 2.7 g/dL (3.4-5.0); ALBUMIN/GLOBULIN RATIO 0.8 (1.0-1.7); TOTAL BILIRUBIN 0.2 mg/dL (0.2-1.0); TOTAL PROTEIN 6.3 g/dL (6.4-8.2)
[2020-06-18] MEDS ORDERED: IV NORMAL SALINE 500ML BAG 500 ML IV ONE (20:15)
--- NOTE | 2020-06-18 20:54 | RAD ---
Examination: PORTABLE CHEST 1V History: Reason: COVID +, INCREASE SOA / Spl. Instructions: / History: Comparison/Correlation: None Findings: Portable upright frontal view of the chest was obtained. Limited pulmonary inflation is present. Interstitial thickening of lung huff diffusely noted and nonspecific. Left lateral basal discoid atelectasis is present. Coronal surgical clips are present. Degenerative narrowing of left glenohumeral joint noted. Impression: Mild discoid atelectasis. No dense consolidations. Electronically signed by: Robi Solorzano MD (06/18/2020 8:51 PM) [facility]
[2020-06-18 22:05] LABS: BILIRUBIN,URINE NEGATIVE (NEG); CLARITY,URINE CLEAR; COLOR,URINE YELLOW; NITRITE,URINE NEGATIVE (NEG); PH,URINE 5.5 (<5.0-8.0); PROTEIN,URINE 30 mg/dL (NEG-TRACE); UROBILINOGEN,URINE 0.2 mg/dL (0.2 mg/dL)
[2020-06-18 22:17] LABS: BACTERIA,URINE MANY /HPF (0-FEW)
[2020-06-18] MEDS ORDERED: NITR100C62 PO (22:32)
[2020-06-18 23:25] VITALS: BP 142/82
[2020-06-19 06:54] LABS: PCO2 COOX 29 mmHg (35-46); PO2 COOX 64 mmHg (65-108)
[2020-06-19 06:55] LABS: BASE EXCESS COOX -4 mmol/L (-3-3); HCO3 COOX 19 mmol/L (21-28); SAT O2 COOX 94 % (92-99)
== END 2020-06-18 23:11 | disposition home or self-care (01) ==
LOC: ER 17:05
DX: U07.1 COVID-19 (principal); R06.02 Shortness of breath; N39.0 Urinary tract infection, site not specified; I12.9 Hypertensive chronic kidney disease with stage 1 through stage 4 chronic kidney disease, or unspecified chronic kidney disease; N18.4 Chronic kidney disease, stage 4 (severe); Z87.891 Personal history of nicotine dependence; Z88.0 Allergy status to penicillin; Z88.1 Allergy status to other antibiotic agents; Z88.2 Allergy status to sulfonamides; Z88.8 Allergy status to other drugs, medicaments and biological substances
CPT/HCPCS: 36415; 36600; 71045; 80053; 81001; 82805; 83605; 83690; 83880; 84484; 85025; 85379; 87086; 96360; 99285; A4314; J7040

== ENCOUNTER → 2021-01-17 | Outpatient (CLI) | payer BC, MEDICARE ==
[~2021-01-17] MED LIST changes: +NITR100C62 PO; +REGADENOSON 0.4 MG/5 ML DISP.SYRIN. IV ONE
--- NOTE | 2021-01-17 19:38 | RAD ---
MR#: [id number] Date of Study: 01/17/2021 Ordering Physician: YARA ALLEN, Referring Physician: PARVEZ KAMARA Tech: BHARATHI Will, GUANAKITO (R) (N) APPROVED REPORT Test Type: Pharmacological Stress Nurse/Tech: Jennifer Velazquez RN Test Indications: D.O.E. Cardiac History: HTN, See EMR. Medications: See EMR. Medical History: CKD, See EMR. Resting ECG: SR Resting Heart Rate: 70 bpm Resting Blood Pressure: 123/56mmHg Pretest Chest Pain: No chest pain Nurse/Tech Notes Lungs with expiratory wheezes throughout, Heart tones regular. Consent: The procedure was explained to the patient in lay terms. Informed consent was witnessed. Alexandro eout was entered into [employer]. History and Stress Test performed by RT Braulio HamptonR) (N) Pharm. Details Pharmacologic stress testing was performed using 0.4mg per 5ml of regadenoson given intravenously ove r 7-10 seconds. Stress Symptoms Dizziness & Light headed. The pt's symptoms had resolved by the completion of the stress test. POST EXERCISE Reason for Termination: Infusion complete Max HR: 96 bpm Max Blood Pressure: 129/56mmHg Blood Pressure response to exercise: Normal blood pressure response during stress. Heart Rate response to exercise: WNL Chest Pain: No. Arrhythmia: No. ST Change: No. No changes from baseline EKG. INTERPRETATION Stress EKG Conclusion: No evidence of stress induced EKG changes. Imaging Protocol IMAGE PROTOCOL: Rest Tc-99m/stress Tc-99m 1 day Rest: Stress: Viability: Radiopharm.Tc99m [id number] Sestamibi Dose9.89mCi 32.5mCi Img Date 01/17/2021 01/17/2021 Inj-Img [id number]. 60min. Rest Admin Site:IV - Left AntecubitalAdministrator:BHARATHI Will, ARRT (R)(N) Stress Admin Site: IV - Left AntecubitalAdministrator: RT Lorenzo Hampton)(N) STRESS DATA End Diast. Vol.35.0mlAv. Heart Rate97.0bpm End Syst. Vol.2.0mlCO Index BSA0.0L/min Myocardial Mass87.0gEject. Xwjltynr66.0% Stress Rates Pk. Fill Rate1.52EDV/secLVtime Pk. Fill 34.60msec Pk. Empty Rate7.39ESV/secLVtime Pk. Ydqqi206.71msec /3 Pk. Fill0.44EDV/sec Stress Scores Regional WT0.00Summed WT3.00 Regional WM0.00Summed WM0.00 The rest and stress images show normal perfusion, normal contraction and thickening. LV Perf. Quant 17 Seg. SSS0.00 17 Seg. SRS0.00 17 Seg. SDS0.00 Stress Defect Extent (% LAD)0.00Rest Defect Extent (% LAD)0.00Rev. Defect Extent (% LAD)0.00 Stress Defect Extent (% LCX) 0.00Rest Defect Extent (% LCX)0.00Rev. Defect Extent (% LCX)0.00 Stress Defect Extent (% RCA)0.00Rest Defect Extent (% RCA)0.00Rev. Defect Extent (% RCA)0.00 Stress Defect Extent (% AGUILAR)0.00Rest Defect Extent (% AGUILAR)0.00Rev. Defect Extent (% AGUILAR)0.00 Other Information Quality:Average Risk Assessment: Low Risk Conclusion 1. No evidence of EKG changes with stress testing. 2. Normal perfusion at stress/rest. 3. Low risk study. 4. EF > 60%. Signed by : Jared Lugo, Electronically Approved : 01/17/2021 19:38:23
== END ==
LOC: NM 09:59
PROVIDERS: ATTEND Internal Medicine Cardiovascular Disease
DX: R06.09 Other forms of dyspnea (principal); I10 Essential (primary) hypertension
CPT/HCPCS: 78452; 93017; A9500; J2785

== ENCOUNTER → 2021-05-25 | Outpatient (CLI) | payer BC, MEDICARE ==
[~2021-05-25] MED LIST changes: -REGADENOSON 0.4 MG/5 ML DISP.SYRIN. IV ONE
--- NOTE | 2021-05-25 15:11 | KCIC ---
EXAM: Abdomen and pelvis CT without intravenous contrast. HISTORY: Flank pain. TECHNIQUE: Computed tomographic images of the abdomen and pelvis were obtained without contrast. Mult iplanar reformatting was performed. *One or more of the following individualized dose reduction techniques were utilized for this examina tion: 1. Automated exposure control. 2. Adjustment of the mA and/or kV according to patient size. 3. Use of iterative reconstruction technique. COMPARISON: 03/17/2020. FINDINGS: Evaluation of the lower thorax demonstrates elevation of the right hemidiaphragm with right basilar compressive atelectasis. There is also posterior dependent atelectasis. There is no infiltra te or pleural effusion. There is calcified atherosclerotic plaque involving the coronary arteries. Th ere is interposition of the colon anterior to the liver, a normal variant. There is a small cyst with in the right hepatic lobe. The gallbladder is absent. The pancreas, spleen and adrenal glands are unr emarkable. There are postoperative changes involving the stomach and small bowel. There is a dilated loop of small bowel within the left upper quadrant at the level of a surgical anastomosis. This conta ins dense ingested material. The imaging appearance does not favor a bezoar. There is no transition p oint to suggest obstruction. There is no appendicitis. There is colonic diverticulosis. There is no convincing diverticulitis. The bladder is unremarkable. There is left greater than right renal atrophy. There are multiple tiny lef t renal cysts, several which are too small to characterize. No convincing solid lesion is seen. There is no hydronephrosis or nephroureterolithiasis. The uterus is absent. The aorta is normal in caliber . There is scarring within the ventral abdominal wall. There are chronic moderate wedge compression d eformities of T10 and T11. There is lumbar hyperlordosis and multilevel listhesis. There is suspected bone demineralization. IMPRESSION: 1. Bilateral renal atrophy and multiple tiny left renal cysts, some which are too small to characteri ze. Renal sonography can be performed to confirm benignity. There is no hydronephrosis or nephrourete rolithiasis. 2. Colonic diverticulosis. 3. Stable postoperative changes involving the stomach and small bowel. There is a stable distended lo op of small bowel at the level of a surgical anastomosis within the left abdomen containing dense ing ested material. There is no evidence of obstruction. 4. Tiny hepatic cyst. Electronically signed by: Charmaine Persaud MD (05/25/2021 3:09 PM) [id number]
== END ==
LOC: KCIC CT 13:11
PROVIDERS: ATTEND Family Medicine
DX: N28.1 Cyst of kidney, acquired (principal); N26.1 Atrophy of kidney (terminal); N23 Unspecified renal colic; K57.30 Diverticulosis of large intestine without perforation or abscess without bleeding; K76.89 Other specified diseases of liver; I25.10 Atherosclerotic heart disease of native coronary artery without angina pectoris; M43.8X4 Other specified deforming dorsopathies, thoracic region; J98.11 Atelectasis
CPT/HCPCS: 74176